=== PATIENT | female | born 1960 | race Caucasian/White ===

== ENCOUNTER 2017-08-08 15:52 | Emergency (ER) | payer OTHER, SELFPAY ==
[2017-08-08 15:53] VITALS: BP 119/86; PULSE 95; RESP 16; TEMP 37; O2SAT 99; BMI 38.5
[2017-08-08 15:59] VITALS: O2SAT 99
--- NOTE | 2017-08-08 16:02 | CT_ITS ---
STUDY: CT BRAIN WITHOUT CONTRAST REASON FOR EXAM: Female, 57 years old. Fall. RADIATION DOSAGE (If Supplied By Facility): CTDIvol = ( 44.99 ) mGy, DLP = ( 829.85 ) mGycm TECHNIQUE: Transaxial CT imaging of the brain was performed without administration of intravenous contrast material. Individualized dose optimization techniques were used for this CT. COMPARISON: 11/29/2016. FINDINGS: Normal soft tissue structures. Normal calvarium. Normal size ventricles and extra-axial spaces for the patient's age. Normal white matter tracts of the cerebral hemispheres. Normal basal ganglia and thalami. Normal brainstem. Normal cerebellum. There is no intracranial hemorrhage. There are no findings of an acute ischemic infarction. Normal visualized paranasal sinuses. CT/Brain/Head without Contrast IMPRESSION: Normal unenhanced CT scan of the brain. Electronically Signed: Pepe De La Cruz MD at 17:07 EDT , Service support ,
--- NOTE | 2017-08-08 16:02 | CT_ITS ---
STUDY: CT CERVICAL SPINE WITHOUT CONTRAST REASON FOR EXAM: Female, 57 years old. Trauma. Previous surgery. RADIATION DOSAGE (If Supplied By Facility): CTDIvol = ( 28.86 ) mGy, DLP = ( 661.33 ) mGycm TECHNIQUE: High resolution transaxial imaging was performed without contrast material. Sagittal and coronal images were reconstructed. Individualized dose optimization techniques were used for this CT. COMPARISON: None FINDINGS: Normal craniovertebral junction. Normal anterior atlantoaxial articulation. Normal odontoid process. Normal cervical lordosis. Postsurgical effusion seen between C4, C5 and C6, with a satisfactory appearance of anterior buttress plate, and complete bony fusion of the discs. Facet joints are intact at all levels. Prominent loss of disc height at C3-C4 and C6-C7. Multilevel posterior osteophytes and disc bulges. At C3-C4 there is a large left-sided osteophyte with marked narrowing of the left neural foramina. There is moderate narrowing of the right neural foramina. There is compromise of the spinal canal, especially to the left. At C4-C5 there is a large posterior osteophyte with prominent compromise of the spinal canal. There is moderate narrowing of both neural foramina. At C5-C6, prominent posterior osteophytes are seen, again with compromise of the spinal canal and bilateral neural foraminal narrowing. Normal visualized soft tissue structures. CT/Spine Cervical without Contras IMPRESSION: No acute fracture or dislocation. Postsurgical and extensive degenerative changes including multilevel neural foraminal and spinal canal narrowing. Electronically Signed: Pepe De La Cruz MD at 17:13 EDT , Service support ,
--- NOTE | 2017-08-08 16:02 | RAD_ITS ---
STUDY: X-RAY - RIGHT RADIUS AND ULNA REASON FOR EXAM: Female, 57 years old. Fall. TECHNIQUE: 2 view(s) of the forearm. COMPARISON: None. FINDINGS: There is no demonstrated soft tissue swelling. Normal visualized radius. Normal visualized ulna. There is no demonstrated acute fracture. RAD/Forearm 2 Views IMPRESSION: Normal x-ray examination of the radius and ulna. Electronically Signed: Pepe De La Cruz MD at 17:14 EDT , Service support ,
[2017-08-08 16:44] LABS: Anion Gap 8 (5-15); BUN 18 mg/dL (7-18); BUN/Creat Ratio 15.5 RATIO (10-20); Calcium,Total 8.5 mg/dL (8.5-10.1); Chloride 104 mmol/L (98-107); Creatinine, Serum 1.16 mg/dL (0.55-1.02); EST Glomerular Filtration Rate 51 mL/min (>60); Est Glom Filt Rate - Afr Amer 62 mL/min (>60); Estimated Creatinine Clearance 42.83 ml/min; Glucose 88 mg/dL (74-106); Potassium 4.1 mmol/L (3.5-5.1); Sodium Level 139 mmol/L (136-145)
[2017-08-08] MEDS: Ondansetron 4 MG/2 ML Vial IV (16:44)
[2017-08-08] MEDS: Morphine 4 MG/ML Syringe IV (16:44)
[2017-08-08] MEDS: 0.9% Normal Saline 1,000 ML 150 ML IV (16:47)
--- NOTE | 2017-08-08 16:50 | RAD_ITS ---
STUDY: X-RAY CHEST REASON FOR EXAM: Female, 57 years old. Trauma. TECHNIQUE: Single AP portable view of the chest. COMPARISON: 11/29/2016. FINDINGS: The lungs are clear and expanded. There is no demonstrated pleural abnormality. Normal size heart. Normal mediastinum and facundo. Normal visualized pulmonary arteries. Normal visualized aortic arch and descending thoracic aorta. Normal visualized thoracic spine. Previous cervical spine surgery. Normal visualized ribs, clavicles, and shoulders. There is no demonstrated abnormality of the visualized soft tissue structures of the upper abdomen. RAD/Chest 1 View (Portable) IMPRESSION: Normal x-ray examination of the chest. Electronically Signed: Pepe De La Cruz MD at 17:16 EDT , Service support ,
[2017-08-08 16:57] LABS: Absolute Lymphocyte Count 1.66 X10^3/ul (0.83-4.51); Absolute Neutrophil Count 3.5 X10^3/uL (2.0-7.7); Basophil# 0.03 X10^3/uL; Basophil% 0.5 % (0-1); Eosinophil# 0.09 X10^3/uL; Eosinophils% 1.6 % (0-5); Hematocrit 37.4 % (37-47); Hemoglobin 12.2 g/dl (12.0-15.0); Lymphocyte # 1.66 X10^3/ul (4.0); Lymphocyte % 30.1 % (19-41); Mean Corp Hgb Conc 32.6 g/gl (32-36); Mean Corpuscular Hgb 27.1 pg (27.0-32.0); Mean Corpuscular Volume 83.1 fL (81-99); Mean Platelet Vol. 8.6 fl (6.2-12.0); Monocyte# 0.26 X10^3/uL; Monocyte% 4.7 % (0-10); Neutrophil # 3.46 X10^3/uL (2.7-7.7); Neutrophil % 62.9 % (47-70); Platelet Count 230 K/mm3 (150-450); RBC Distribution Width CV 13.3 % (11.6-14.6); RBC Distribution Width SD 39.8 fl (35.1-43.9); White Blood Count 5.5 K/mm3 (4.4-11.0)
[2017-08-08 17:04] LABS: POSITIVE COUNT NO; POSITIVE DIFFERENTIAL NO; POSITIVE MORPHOLOGY NO
--- NOTE | 2017-08-08 17:23 | ED.VISSUMM ---
- ER Visit Summary Date of Service: 08/08/17 Chief Complaint: Fall History of Present Illness: The patient is a 57 F who fell approximately 3 feet off a ladder. She did hit her head but had a loss of consciousness. She is planning a right forearm pain. She is right-hand dominant. Past history significant for hypertension, high cholesterol, asthma, hypothyroidism, and depression. She is not on anticoagulants. Physical Examination: Vital signs are unremarkable. Patient sitting upright in bed with a c-collar in place. Head neck examination was a 4 cm abrasion to the right parietal scalp with underlying hematoma. There is no C-spine tenderness. Heart is regular rate and rhythm. Lung sounds are clear. Abdomen soft nontender. Extremity examination reveals tenderness in the right mid forearm and elbow. She has no tenderness at the right shoulder. She is able to wiggle her fingers and has good distal pulses with normal sensation. Test Results: CT scan of the head is unremarkable. CT the C-spine shows no acute fracture or dislocation. Right forearm x-rays are unremarkable. Chest x-ray is normal. CBC and chemistry studies are unremarkable. Emergency Department Course and Treatment: Patient was given morphine and Zofran IV. On repeat evaluation she is improved and ambulate in the hallway. She will be discharged with prescription for analgesics. Treatment Plan: [] Disposition: Discharge Impression: 1. Fall 2. Closed head injury 3. Right forearm contusion This note was generated with inFreeDA dictation software. It may contain incorrect words, spelling, and punctuation that were not noted in review of the chart prior to signing ED Disposition - Plan for ED Patient: Chief Complaint: Head Injury Referrals: Columba Mike MD [Primary Care Provider] -
--- NOTE | 2017-08-08 17:27 | ED.DCSUM_ITS ---
- ER Visit Summary Date of Service: 08/08/17 Chief Complaint: Fall History of Present Illness: The patient is a 57 F who fell approximately 3 feet off a ladder. She did hit her head but had a loss of consciousness. She is planning a right forearm pain. She is right-hand dominant. Past history significant for hypertension, high cholesterol, asthma, hypothyroidism, and depression. She is not on anticoagulants. Physical Examination: Vital signs are unremarkable. Patient sitting upright in bed with a c-collar in place. Head neck examination was a 4 cm abrasion to the right parietal scalp with underlying hematoma. There is no C-spine tenderness. Heart is regular rate and rhythm. Lung sounds are clear. Abdomen soft nontender. Extremity examination reveals tenderness in the right mid forearm and elbow. She has no tenderness at the right shoulder. She is able to wiggle her fingers and has good distal pulses with normal sensation. Test Results: CT scan of the head is unremarkable. CT the C-spine shows no acute fracture or dislocation. Right forearm x-rays are unremarkable. Chest x- ray is normal. CBC and chemistry studies are unremarkable. Emergency Department Course and Treatment: Patient was given morphine and Zofran IV. On repeat evaluation she is improved and ambulate in the hallway. She will be discharged with prescription for analgesics. Treatment Plan: [] Disposition: Discharge Impression: 1. Fall 2. Closed head injury 3. Right forearm contusion This note was generated with [employer] dictation software. It may contain incorrect words, spelling, and punctuation that were not noted in review of the chart prior to signing ED Disposition - Plan for ED Patient: Chief Complaint: Head Injury Referrals: Columba Mike MD [Primary Care Provider] -
--- NOTE | 2017-08-08 17:29 | ED.DEP ---
ED Disposition - Plan for ED Patient: Disposition: Home or Assisted Living Chief Complaint: Head Injury Instructions: ED Head Injury Closed, ED Contusion Upper Ext, ED Mechanical Fall Prescriptions: Oxycodone HCl/Acetaminophen [Percocet 5/325] 1 tablet PO Q6H PRN PRN 3 Days #12 tablet PRN Reason: Pain Referrals: Columba Mike MD [Primary Care Provider] - 1 Week
[2017-08-08 17:47] VITALS: BP 110/80; PULSE 80; RESP 16; O2SAT 97
== END 2017-08-08 17:55 | disposition home or self-care (01) ==
PROVIDERS: Emergency Provider Emergency Medicine; Family Provider Internal Medicine; PCP Internal Medicine
DX: S50.11XA Contusion of right forearm, initial encounter (principal); S09.90XA Unspecified injury of head, initial encounter; W11.XXXA Fall on and from ladder, initial encounter; Y93.89 Activity, other specified; Y92.89 Other specified places as the place of occurrence of the external cause; Y99.8 Other external cause status
CPT/HCPCS: 70450; 71045; 72125; 73090; 80048; 85025; 96361; 96374; 96375; 99285; J7030; A4216; J2405

== ENCOUNTER 2019-01-28 08:01 | Emergency (ER) | payer MEDICAID, SELFPAY ==
[2019-01-28 08:03] VITALS: BP 155/84; PULSE 90; RESP 17; TEMP 36.8; O2SAT 98; BMI 40.8
--- NOTE | 2019-01-28 08:22 | RAD_ITS ---
STUDY: X-RAY - PELVIS AND LEFT HIP REASON FOR EXAM: Female, 58 years old. PAIN TO LEFT HIP AND LOWER BACK, WORSENING OVER LAST WEEK -- HX OF FALL FEW WEEKS AGO TECHNIQUE: 3 views of the pelvis and hip. COMPARISON: None. FINDINGS: There is a normal bowel gas pattern. Normal visualized soft tissue structures. There is degenerative and postoperative changes in the lower spine Normal bilateral iliac wings, sacroiliac joints and visualized sacrum. Normal bilateral superior and inferior pubic rami. Normal pubic symphysis. Normal bilateral ischial tuberosities. There are osteoarthritic changes of the femoral head with marginal osteophyte formation. There is osteoarthritic spur formation of the acetabular rim. There is moderate articular joint space narrowing of the hip. There is no acute fracture. RAD/HIP, UNI W/ Pelvis 2-3 Views IMPRESSION: Degenerative change. No acute fracture. Electronically Signed: Uri Campos MD at 8:37 EST , Service support ,
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
--- NOTE | 2019-01-28 08:48 | DCINST.ED_ITS ---
ED Disposition - Plan for ED Patient: Instructions: Hip Strain Prescriptions: Hydrocodone Bitart/Apap 5-325 [[place] 5MG-325MG] 1 tab PO Q4H PRN PRN 2 Days #10 tab PRN Reason: Pain Prescription Printed Referrals: Columba Mike MD [Primary Care Provider] - 3-5 Days Carlyle Broussard MD [STAFF PHYSICIAN] - 3-5 Days
== END 2019-01-28 08:55 | disposition home or self-care (01) ==
LOC: ED 08:21
PROVIDERS: Emergency Provider Emergency Medicine; Family Provider Internal Medicine; PCP Internal Medicine
DX: S73.192A Other sprain of left hip, initial encounter (principal); I10 Essential (primary) hypertension; Z79.899 Other long term (current) drug therapy; W01.0XXA Fall on same level from slipping, tripping and stumbling without subsequent striking against object, initial encounter; Y93.89 Activity, other specified; Y92.007 Garden or yard of unspecified non-institutional (private) residence as the place of occurrence of the external cause; Y99.8 Other external cause status
CPT/HCPCS: 73502; 99282

== ENCOUNTER 2019-03-29 09:30 | Outpatient (RCR) | payer MEDICAID, SELFPAY ==
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
--- NOTE | 2019-05-15 13:37 | HP.PT.NRP ---
DOUG WAGNER was seen in my office for initial evaluation on 03/19/19. The following Plan of Care was established for this patient: Initial Frequency: 2x /Week Initial Duration: 4-6 Weeks Patient/Client Instruction: Educate patient on: Condition, Plan of Care For the Purpose of:: To decrease pain, To improve muscle performance and motor function, To increase tolerance to activity/condition/position, To improve ability of physical actions for home/community/work/leisure, To improve gait and locomotor functions Therapeutic Exercise to Include: Strength training, Flexibilty training, Gait and locomotor training, Neuromotor development, In an aquatic setting, Passive ROM, Active ROM For the Purpose of:: To decrease pain, To improve muscle performance and motor function, To increase tolerance to activity/condition/position, To improve gait and locomotor functions This patient was last seen in our office 03/29/19. Pertinent comments regarding their Physical therapy will appear below: Pt seen 4 visits of POC and cancelled her last two without rescheduling. At this point, it has been nearly two months adn I will discontinue due to nonattendance. At this point I will be discontinuing this patient from physical therapy. I would be happy to see this patient again in the future if found appropriate by the physician. Thank you! Geovani Menendez, DPT, OCS, CSCS
== END 2019-03-29 19:00 | disposition home or self-care (01) ==
LOC: PT 09:30
PROVIDERS: PCP Internal Medicine; Referring Provider Specialist; Visit Provider Specialist
DX: M16.12 Unilateral primary osteoarthritis, left hip (principal)
CPT/HCPCS: 97113; 97161

== ENCOUNTER → 2019-04-17 | Outpatient (CLI) | payer MEDICAID, SELFPAY ==
--- NOTE | 2019-04-16 22:42 | HP.PCM_ITS ---
History and Physical History and Physical [facility] Patient Name: Robyn Melo : 1960 From: JULIOCESAR EDWARDS PA-C DATE OF SURGERY: 05/02/2019 SCHEDULED PROCEDURE: left total hip arthroplasty HISTORY OF PRESENT ILLNESS: Preoperative history and physical exam was performed on April 16, 2019. This is a 58-year-old female who has been having ongoing pain in her left hip since early January 2019 after a fall. Patient fell landing on the left side. She was worked up with an MRI which did reveal nondisplaced transphyseal femoral neck fracture. She was treated with protected weightbearing. Patient also has significant osteoarthritis with the left hip. Patient has pain that is constant, dull, aching, sharp, stabbing, sore. She has increased pain with stairs, driving, sitting, and walking. Patient has difficult time with activities of daily living including showering/bathing, getting dressed, housework, shopping. She has fallen in the past. Patient feels unsafe walking outside on uneven ground or putting full weight on her left lower extremity. She has tried previous physical therapy that was placed on hold due to her continued pain. She has tried rest, ice, heat, elevation. She has been on Tylenol and Aleve for pain control. She denies previous surgery on the left hip. Currently denies any chest pain, shortness of breath, fevers chills, recent infections. After failing conservative measures and discussing treatment options with Dr. Carlyle Broussard, the patient would like to proceed with a left total hip arthroplasty. Patient does have a medical history pertinent for thyroid disease, gastroesophageal reflux disease, hypertension. Patient also has previous history of multiple back surgeries with cervical and lumbar fusion. She states she had a staph infection from a previous back surgery 2 years ago which required IV antibiotics. There is been no recent fevers, chills or recent infections. We are obtaining surgical clearance from the primary care physician. REVIEW OF SYSTEMS: ROS: Const: Denies anorexia, anxiety, change in appetite, fever and weight change,hard of hearing, and vision problems. Eyes: Denies symptoms other than stated above. ENMT: Denies ear symptoms. Denies nasal symptoms. Denies mouth or throat symptoms. CV: Denies cardiovascular symptoms. Resp: Reports asthma, but denies cough, pneumonia, sleep apnea, shortness of breath, tuberculosis and wheezing. GI: Denies constipation, diarrhea, heartburn, nausea, bloody stools and vomiting, and difficulty swallowing. : Denies female genital problems. Denies incontinence. Musculo: Denies leg swelling, trouble walking and weakness and limp. Skin: Reports tattoo, but denies Raynaud's and history of shingles. Breast: Denies breast problems. Neuro: Denies neurologic symptoms. Psych: Denies psychiatric symptoms. Endocrine: Denies endocrine symptoms. Jimmie/Lymph: Denies hematologic symptoms. . (Nodes Sx) Allergy/Immuno: Denies allergic/immunologic symptoms. Reviewed, no changes. PAST MEDICAL HISTORY: Advance Care Plan: No Advance Directives Effective Date: 02/01/2019 PMH: Medical Problems: Asthma, Thyroid Disease, GERD, High Blood Pressure, Hypercholesterolemia Accidents: None Surgical Hx: Cervical Fusion - 2003 Herniated disc L4/L5 Fusion Neck Fusion Back Fusion - 6 Anesthesia Complications: None Assistive Devices: Glasses Reviewed and updated. SOCIAL HISTORY: SH: Marital: Single.Occupation: Unemployed.Work Status: Not Working Currently.Hand Dominance: Right-handed. Personal Habits: Cigarette Use: Former.Smokeless Tobacco: Never Used Smokeless Tobacco.E-Cigarette Use: Never used.Alcohol: Has consumed alcohol in the past.Drug Use: Denies Use.Enjoy Exercising: Daily. Reviewed and updated. VITALS: Ht: 61 Wt: 214lb Wt k.070 BMI: 40.4 BP: 126/82 Pulse: 100 Resp: 18 T: 98.4 T: 36.9C ALLERGIES: Lidocaine PCN Latex, Natural Rubber Atorvastatin MEDICATIONS: Levothyroxine Sodium 75 mcg daily, Bupropion HCL 75 mg 2 tabs by mouth daily, Lisinopril 10 mg daily, Prilosec 20 mg 1 po qdAY, Omeprazole 20 mg 1 by mouth every day, Fluoxetine HCL (PMDD) 20 mg 1 tab by mouth daily, Simvastatin 20 mg 1 by mouth every day, Lamotrigine ER 100 mg 1 tab by mouth daily PRE-OP EXAM: General appearance:NORMAL Other: Eyes: Conjunctivae and lids: NORMAL Pupils: ERR Ears, Nose, Mouth, and Throat: NORMAL Other: Inspection of lips, teeth and gums: NORMAL Other: Neck: Examination of neck: no masses noted. Respiratory: Assessment of respiratory effort: NORMAL Other: Auscultation of lungs: clear to auscultation no wheezes, rhonchi or rales. Cardiovascular: Auscultation of heart: regular rate and rhythm, no murmurs, gallops or rubs. Exam of carotid arteries: NORMAL Other: Gastrointestinal: Exam of abdomen: soft, nontender, nondistended bowel sounds present. PHYSICAL EXAMINATION: Patient walks with an antalgic gait. There is a 20 left hip flexion contracture. She has tenderness to palpation along the lateral left hip. She has obligatory external rotation with flexion, pain is significantly increased with flexion, abduction, internal rotation. Flexion to 70, internal rotation neutral, external rotation 25. 3/5 strength. IMAGING STUDIES: On February 15, 2019 which did show significant osteoarthritis of the left hip as well as healing nondisplaced transphyseal femoral neck fracture. Previous x-rays of the left hip reveal joint space narrowing with subchondral sclerosis, osteophyte formation consistent with moderate to severe osteoarthritis. IMPRESSION: 1. Severe right hip osteoarthritis with previous Transphyseal femoral neck fracture 2. Thyroid disease 3. Hypertension 4. Gastroesophageal reflux disease 5. Hypercholesterolemia 6. Asthma 7. Previous history of cervical and lumbar fusion: Previous staph infection 2 years ago PLAN: Dr. Carlyle Broussard did discuss and review with the patient all treatment options including surgical versus nonsurgical options. Patient does wish to proceed with the above-stated procedure. Potential risks, benefits, and complications of the procedure were discussed in detail including but not limited to , infection, nerve and blood vessel damage, persistent pain, numbness, tingling, paresthesias, blood clot, pulmonary embolism, and requirement for possible further surgery. The patient expressed full understanding and has no further questions for the doctor. Patient does agree to proceed with the above-stated procedure and has signed the surgery consent form. This dictation was created using voice recognition software. Phonetic and/or grammatical errors may exist. ___ I have re-examined the patient. There are no clinical changes since date of exam. ___ See progress notes for changes. ___ Dictated on admission Date: Time: Signature:
[2019-04-17 08:08] VITALS: BP 137/80; PULSE 83; RESP 16; TEMP 36.5; O2SAT 97; BMI 40.2
--- NOTE | 2019-04-17 08:23 | SDCEKG_ITS ---
Test Reason : Blood Pressure : / mmHG Vent. Rate : 078 BPM Atrial Rate : 078 BPM P-R Int : 188 ms QRS Dur : 078 ms QT Int : 366 ms P-R-T Axes : 046 -41 018 degrees QTc Int : 417 ms Normal sinus rhythm Left axis deviation Inferior infarct (cited on or before 19-OCT-2005) Abnormal ECG Confirmed by NITHYA RODRIGUEZ ([id number]), design editor BUCK ELLIOTT ([id number]) on 04/19/2019 7:21:37 AM Referred By: Carlyle Broussard Confirmed By:NITHYA RODRIGUEZ
[2019-04-17 08:52] LABS: Absolute Lymphocyte Count 1.27 X10^3/uL (0.83-4.51); Basophil# 0.04 X10^3/uL; Basophil% 0.8 % (0-1); Eosinophil# 0.12 X10^3/uL; Eosinophils% 2.5 % (0-5); Hematocrit 38.5 % (37-47); Hemoglobin 12.2 g/dL (12.0-15.0); Lymphocyte # 1.27 X10^3/ul (4.0); Mean Corp Hgb Conc 31.7 g/dL (32-36); Mean Corpuscular Hgb 25.9 pg (27.0-32.0); Mean Corpuscular Volume 81.7 fL (81-99); Mean Platelet Vol. 8.4 fl (6.2-12.0); Monocyte% 6.4 % (0-10); NRBC Flagged by Analyzer 0 % (0-5); Neutrophil # 2.97 X10^3/uL (2.7-7.7); Neutrophil % 63.1 % (47-70); Platelet Count 246 K/mm3 (150-450); RBC Distribution Width CV 13.2 % (11.6-14.6); RBC Distribution Width SD 39.4 fl (35.1-43.9); Red Blood Count 4.71 M/mm3 (4.2-5.4); White Blood Count 4.7 K/mm3 (4.4-11.0)
[2019-04-17 09:09] LABS: Anion Gap 5 (5-15); BUN 20 mg/dL (7-18); BUN/Creat Ratio 21.9 RATIO (10-20); Calcium,Total 9.5 mg/dL (8.5-10.1); Chloride 106 mmol/L (98-107); Creatinine, Serum 0.92 mg/dL (0.55-1.02); EST Glomerular Filtration Rate 67 mL/min (>60); Est Glom Filt Rate - Afr Amer 81 mL/min (>60); Estimated Creatinine Clearance 50.91 ml/min; Glucose 103 mg/dL (74-106); Potassium 4.3 mmol/L (3.5-5.1); Sodium Level 138 mmol/L (136-145); Thyroid Stim Hormone (TSH) 3.47 uIU/mL (0.358-3.74)
== END | disposition home or self-care (01) ==
LOC: PAT 05-28 10:36
PROVIDERS: PCP Internal Medicine; Referring Provider Specialist; Visit Provider Specialist
DX: M16.11 Unilateral primary osteoarthritis, right hip (principal); E07.9 Disorder of thyroid, unspecified; I10 Essential (primary) hypertension; K21.9 Gastro-esophageal reflux disease without esophagitis; E78.00 Pure hypercholesterolemia, unspecified; J45.909 Unspecified asthma, uncomplicated
CPT/HCPCS: 80048; 84443; 85025; 87077; 87081; 93005

== ENCOUNTER 2019-05-30 08:59 | Day surgery (SDC) | payer MEDICAID, SELFPAY ==
[2019-04-17 08:08] VITALS: BMI 40.2
--- NOTE | 2019-05-28 19:42 | HP.PCM_ITS ---
History and Physical Date of Admission: 05/30/19 [facility] History and Physical Patient Name: Robyn Melo : 1960 From: TREVA HYATT NP DATE OF SURGERY: 05/30/2019 SCHEDULED PROCEDURE: Left total hip arthroplasty HISTORY OF PRESENT ILLNESS: Preoperative history and physical exam was performed on May 28, 2019. This is a 58-year-old female has been having ongoing left hip pain since January 2019 after a fall. The patient landed on her left side. The patient sustained a nondisplaced transfer his he a femoral neck fracture. She was treated with protective weightbearing. The patient also has significant osteoarthritis in the left hip. She describes the pain as constant, dull, aching, sharp, stabbing and sore. The pain is increased with stairs, driving, sitting and walking. She has difficulty with activities of daily living including showering/bathing, dressing, housework and shopping. The patient has a history of falls. The patient feels insecure walking on uneven ground or bearing full weight on her left lower extremity. Previous treatments include rest, ice, heat and elevation . She has taken Tylenol and Aleve for pain control. The patient also attempted physical therapy but due to increased pain was put on hold. She denies previous surgery on the left hip. The patient denies chest pain, fevers, chills, shortness of breath, difficulty breathing or recent infections. After failing conservative treatment measures and discussing treatment options with Dr. Carlyle Broussard the patient would like to proceed with a left total hip arthroplasty. The patient does have a medical history pertinent for thyroid disease, gastroesophageal reflux and hypertension. She has a history of multiple back surgeries with cervical and lumbar fusion. The patient had a staph infection from a previous back surgery 2 years ago which required IV antibiotics. We are obtaining surgical clearance from her primary care physician. REVIEW OF SYSTEMS: ROS: Const: Denies anorexia, anxiety, change in appetite, fever and weight change,hard of hearing, and vision problems. Eyes: Denies symptoms other than stated above. ENMT: Denies ear symptoms. Denies nasal symptoms. Denies mouth or throat symptoms. CV: Denies cardiovascular symptoms. Resp: Reports asthma, but denies cough, pneumonia, sleep apnea, shortness of breath, tuberculosis and wheezing. GI: Denies constipation, diarrhea, heartburn, nausea, bloody stools and vomiting, and difficulty swallowing. : Denies female genital problems. Denies incontinence. Musculo: Denies leg swelling, trouble walking and weakness and limp. Skin: Reports tattoo, but denies Raynaud's and history of shingles. Breast: Denies breast problems. Neuro: Denies neurologic symptoms. Psych: Denies psychiatric symptoms. Endocrine: Denies endocrine symptoms. Jimmie/Lymph: Denies hematologic symptoms. . (Nodes Sx) Allergy/Immuno: Denies allergic/immunologic symptoms. Reviewed, no changes - 05/28/2019 at 7:25 pm by Treva Hyatt PAST MEDICAL HISTORY: Advance Care Plan: No Advance Directives Effective Date: 02/01/2019 PMH: Medical Problems: Asthma, Thyroid Disease, GERD, High Blood Pressure, Hypercholesterolemia, Depression Accidents: None Surgical Hx: Cervical Fusion - 2003 Herniated disc L4/L5 Fusion Neck Fusion Back Fusion - 6 Anesthesia Complications: None Assistive Devices: Glasses Reviewed and updated - 05/28/2019 at 7:25 pm by Treva Hyatt SOCIAL HISTORY: SH: Marital: Single.Occupation: Unemployed.Work Status: Not Working Currently.Hand Dominance: Right-handed. Personal Habits: Cigarette Use: Former.Smokeless Tobacco: Never Used Smokeless Tobacco.E-Cigarette Use: Never used.Alcohol: Has consumed alcohol in the past.Drug Use: Denies Use.Enjoy Exercising: Daily. Reviewed, no changes - 05/28/2019 at 7:25 pm by Treva Hyatt VITALS: Ht: 61 Wt: 214lb Wt k.070 BMI: 40.4 BP: 112/68 Pulse: 103 Resp: 18 T: 98.2 T: 36.8C ALLERGIES: Lidocaine PCN Latex, Natural Rubber Atorvastatin MEDICATIONS: Oxycodone HCL 5 mg 1-2 by mouth every 6 hours, Meloxicam 7.5 mg 1 by mouth twice a day, Promethazine HCL 12.5 mg 1-2 tablets by mouth every 6 hours, Levothyroxine Sodium 75 mcg daily, Bupropion HCL 75 mg 2 tabs by mouth daily, Lisinopril 10 mg daily, Prilosec 20 mg 1 po qdAY, Fluoxetine HCL (PMDD) 20 mg 1 tab by mouth daily, Simvastatin 20 mg 1 by mouth every day, Lamotrigine ER 100 mg 1 tab by mouth daily PRE-OP EXAM: General appearance:NORMAL Other: Eyes: Conjunctivae and lids: NORMAL Pupils: ERR Ears, Nose, Mouth, and Throat: NORMAL Other: Inspection of lips, teeth and gums: NORMAL Other: Neck: Examination of neck: no masses noted. Respiratory: Assessment of respiratory effort: NORMAL Other: Auscultation of lungs: clear to auscultation no wheezes, rhonchi or rales. Cardiovascular: Auscultation of heart: regular rate and rhythm, no murmurs, gallops or rubs. Gastrointestinal: Exam of abdomen: soft, nontender, nondistended bowel sounds present. Neurological: see below Psychiatric: Orientation to time, place and person: NORMAL Other: Mood and affect: NORMAL Other: PHYSICAL EXAMINATION: The patient walks with an antalgic gait. There is a 20 left hip flexion contracture. Tenderness with palpation along the lateral left hip. She has obligatory external rotation with flexion. The pain is significantly increased with flexion, abduction and internal rotation. Range of motion: Flexion to 70. Internal rotation to neutral. External rotation 25. Strength 3/5. IMAGING STUDIES: An MRI was obtained on February 15, 2019 revealing a healing nondisplaced incomplete lateral transphyseal fracture of the left neck of femur. X-rays obtained on March 16, 2019 of the left hip reveal joint space narrowing with subchondral sclerosis, osteophyte formation consistent with moderate to severe osteoarthritis. IMPRESSION: 1. Severe right hip osteoarthritis with previous transphyseal femoral neck fracture 2. Thyroid disease 3. Hypertension 4. Gastroesophageal reflux disease 5. Hypercholesterolemia 6. Asthma 7. Previous history of cervical and lumbar fusion with staph infection approximately 2 years ago. 8. MRSA positive PLAN: Dr. Carlyle Broussard did discuss and review the patient all treatment options including surgical versus nonsurgical. The patient does wish to proceed with a left total hip arthroplasty. Potential risk, benefits and complications of the procedure were discussed in detail including but not limited to , in fection, nerve and blood vessel damage, persistent pain, numbness, tingling, paresthesias, blood clot, pulmonary embolism and requirement for possible further surgery. The patient expressed full understanding and has no further questions for the doctor. The patient does agree to proceed with the above- stated procedure and has signed the surgery consent form. ___ I have re-examined the patient. There are no clinical changes since date of exam. ___ See progress notes for changes. ___ Dictated on admission Date: Time: Signature:
[2019-05-30] VITALS (9 sets, daily range): BP systolic 112–130; BP diastolic 57–81; PULSE 85–94; RESP 16–18; TEMP 36.2–36.9; O2SAT 94–100; BMI 38.7
--- NOTE | 2019-05-30 | HIP_PTH ---
PATIENT: DOUG WAGNER LOC: [facility] U#:[id number] AGE/SX: 58/F ROOM: RE05/30/[address]: Dr. Carlyle Broussard MD : 1960 BED: DIS: 05/30/2019 SPEC #: [id number] RECD: 05/30/19 14:43 STATUS: WYATT REQ #: [id number] SCOTTY: 05/30/19 00:[address]: Carlyle Broussard DEPT: SURGICAL PATHOLOGY RECD BY: Noé Amaro ENTERED: 05/31/19 10:28 SP TYPE: TOTAL HIP OTHR DR: Dr. Columba Mike MD Tissues: Hip, NOS Procedures: Decalcification bone/plaque Surgery Specimen Level IV HEADER OPERATION: RANDAS, minimally invasive direct anterior total hip PRE-OP DIAGNOSIS: Severe right hip osteoarthritis with previous transphyseal femoral neck fracture TISSUE SUBMITTED: Left hip bone and soft tissue MICROSCOPIC DIAGNOSIS Left hip bone and soft tissue, total hip replacement/resection: Femoral head with degenerative osteoarthritic changes. Fragments of fibroadipose tissue, fibroconnective tissue and reactive synovial tissue. SANTANA:carole 06/06/19 MICROSCOPIC DESCRIPTION Slides are reviewed. GROSS DESCRIPTION Received is one container designated left hip bone and soft tissue. The specimen consists of a femoral measuring 4 x 4.5 x 4 cm. The articular surface shows focal area of erosion and osteophyte formation. Also present in the specimen container is a detached piece of bone, most consistent with portion of femoral neck measuring 4.5 x 4 x 2 cm. A small piece of soft tissue is noted attached to the top of the femoral head measuring 2.5 x 1.5 x 1 cm. Spanish Interpreter/Translator sections are submitted in three cassettes as follows: 1 - soft tissue, 2 - femoral head, 3 - femoral neck. Cassettes 2 & 3 are submitted after decalcification. / SANTANA:carole 05/31/19 TC:5 CPT: 39880, 02324
[2019-05-30] MEDS: Acetaminophen 500 MG Tablet 1000 MG PO (09:59)
[2019-05-30] MEDS: Celecoxib 200 MG Capsule 400 MG PO (10:00)
[2019-05-30] MEDS: Gabapentin 600 MG Tablet PO (10:00)
[2019-05-30] MEDS: Lactated Ringers 1,000 ML 999 ML IV (10:14)
[2019-05-30 10:20] LABS: Bedside Glucose 96 mg/dL (70-110)
--- NOTE | 2019-05-30 11:10 | RAD_ITS ---
STUDY: X-RAY - PELVIS AND LEFT HIP REASON FOR EXAM: Female, 58 years old. TOTAL ANTERIOR HIP TECHNIQUE: 2 intraoperative views of the pelvis and hip. COMPARISON: None. FINDINGS: The patient is status post left total hip replacement. There is good alignment. RAD/Hip 1 view with Pelvis IMPRESSION: Status post left total hip replacement. There is good alignment. Electronically Signed: Angelo Rockwell, at 15:10 EDT , Service support ,
[2019-05-30] MEDS: Cefazolin 2 GM in 0.9% Normal Saline 100 ML IV (12:06)
--- NOTE | 2019-05-30 12:23 | RAD_ITS ---
STUDY: X-RAY - PELVIS AND LEFT HIP REASON FOR EXAM: Female, 58 years old. Post op left hip surgery TECHNIQUE: 2 views of the pelvis and hip. COMPARISON: Comparison is made with prior radiograph dated May 30, 2019 done earlier in the day. FINDINGS: The patient is status post left total hip replacement. There is good alignment. Postoperative soft tissue changes. Marked degree of joint space narrowing and osteoarthritis of the right hip joint. RAD/Hip Min 2 Views (Portable) IMPRESSION: Status post left total hip replacement. There is good alignment. Postoperative soft tissue changes. Marked degree of osteoarthritis and joint space narrowing of the right hip joint. Electronically Signed: Angelo Rockwell, at 15:18 EDT , Service support ,
[2019-05-30] MEDS: dexAMETHasone 10 MG/ML Vial IV (12:38)
[2019-05-30] MEDS: Lactated Ringers 1,000 ML 75 ML IV (13:00)
--- NOTE | 2019-05-30 13:55 | OP.PCM_ITS ---
Report of Operation Date of Procedure: 05/30/19 Pre-Operative Diagnosis: Left hip primary osteoarthritis. Left hip transc ervical femoral neck fracture sequelae Post-Operative Diagnosis: Left hip primary osteoarthritis. Left hip transcervical femoral neck fracture sequelae Surgery/Procedure Performed:: Left minimally invasive direct anterior total hip replacement Description of Surgical Findings:: Stable hip with equal leg lengths small battery plate assembler: Natanael Whalen Type of Anesthesia:: General Anesthesiologist: Grant Frank Special Medications: 2 g Ancef, 1 g TXA at incision, 1 g TXA closure, 10 mg Decadron, joint cocktail (5 mg Duramorph, 30 mL of 0.5% Ropivicaine, 1000 units of epinephrine, 30 mg of Toradol). Vancomycin secondary to history of Specimen's removed: Femoral head was sent for pathology. Estimated Blood Loss (mL): 200 Fluids Replaced: 1500 mL crystalloid Description of Procedure: Components used: 1. Accolade 2 Cassie femoral stem size 3 127? 2. Interior trident 2 acetabular shell size 48 mm 3. Interior X3 polyethylene d 4. Cassie Biolox delta 32mm, -4mm femoral head Brief history operative indications: 58 yo f who failed conservative measures for their hip osteoarthritis. X-rays were consistent with osteoarthritis including joint space narrowing, osteophyte formation and subchondral cysts. Total hip replacement was discussed with the patient with risks and benefits including but not limited to blood loss, DVTs, PEs, neurovascular damage, dislocation, general risks of anesthesia including loss of life. Patient demonstrated an understanding medical clearance is obtained the patient was consented for surgery. Procedure: On the date of procedure the patient's L hip was marked in the preoperative area. Patient was then taken back to the operating room where anesthesia assumed control of the C-spine and airway and administered anesthetic. Patient was transferred to the operating table and placed in the supine position. The hips were placed at the break of the bed and a sacral bump was placed. The L lower extremity was then prepped out in a sterile fashion using chlorhexidine while the surgeon scrubbed. The PA was vital in the positioning of the patient. Upon reentering the room the L lower extremity was draped in the standard orthopedic fashion and the incision was marked. A timeout was called and everyone agreed upon the side, the site, the procedure be performed, antibody given, and patient's identity. At this time incision was made through skin, subcutaneous tissue, and fat down to fascia. The fascia was then incised and the TFL was retracted laterally. A retractor was placed on the lateral border of the femoral neck. Attention was directed to the inferior portion of the approach and all crossing vessels were identified and appropriately coagulated. A retractor was then placed on the medial portion of the femoral neck. The anterior capsule was then cleared of all soft tissue and then H shaped capsulotomy was made. The retractors were then placed inside the capsule. The femoral neck was identified and a cleanup cut was made. At this time a power corkscrew was used to remove the femoral head. Attention was then turned toward the acetabulum where the soft tissues were appropriately retracted and the acetabulum was sequentially reamed to 48 mm. A 48 mm cup was then selected and impacted into place. Acetabular liner was impacted into place and locking mechanism was verified. The position of the acetabular cup was then verified under live fluoroscopy. Attention was then turned to the femur. Soft tissue releases on the medial and lateral femoral neck were appropriately done, the leg was externally rotated and lateralized. A Power retractor was placed medially and proximally to the greater trochanter this allowed appropriate visualization and exposure of the femoral canal. Rongeour was then used to remove excess lateral bone. A canal finder and entry broach were used to open the proximal canal. Once we verified we were down the femoral canal we subsequently broached up to a size 3 femur. The appropriate neck was placed in the previously selected head was trialed with a [] mm neck. Traction was pulled and the hip was reduced with internal rotation. Once it was appropriately reduced and stability was checked. There was minimal shuck, equal leg lengths and appropriate stability with hyperextension and external rotation as well as with 90? flexion and internal rotation. Fluoroscopy was then also used to verify the position of the components and leg lengths using the contralateral side for comparison. The trial components were then dislocated the proximal femur was again exposed and the components were removed from the wound. The final components were verified and opened. The wound was copiously irrigated out with normal saline. The acetabulum was checked for any residual debris. The final components were placed and impacted. Traction and internal rotation were again used to reduce the hip. After adequate reduction the hip remained stable with appropriate leg lengths. The final components were once again checked with live fluoroscopy and were found to be satisfactory. The wound was then copiously irrigated with normal saline once more, and hemostasis was obtained. Closure was then done using #1 Vicryl runner to close the fascia. A 2-0 vicryl interuppted sutures were used to close the subcutaneous skin. A 3-0 Monocryl and Steri-Strips were used for final skin closure. A Silverlon dressing was placed. Patient was awakened by anesthesia and transferred to the [facility]. Patient was then transferred to the PACU for recovery. Postoperative plan: Patient will get an additional dose of Ancef postop antibiotics prior to discharge. Patient will get in-house physical therapy and will be weight-bear as tolerated. Patient will follow up in office in 2 weeks for a wound check and x-rays. During the course of the procedure the physician medical lab assistant played a vital role. His intimate knowledge of my steps in the procedure aided in safe and expedient completion of the procedure. The PA played a vital rolls in positioning particularly in obtaining the appropriate positioning of the sacral bump. The PA was also vital in the retraction of soft tissues during the exposure and especially the femoral work as this is a vital part of the procedure to prevent complications and fractures. The PA was also vital and protecting soft tissues during times of bony cuts and reaming. He also played a vital role in closure with my direct supervision. The PA was also important during reduction and dislocation of the joint and trials intraoperatively. Grafts/Implants Used: Interior - Complications No intraoperative complications - Admit VTE Documentation VTE Present on Admission: No VTE Mechan Device Prophylaxis: SCD's, Thigh High MILTON Hose VTE Pharm Prophylaxis ordered?: Yes Essential Procedure Criteria Procedure Essential: Yes Criteria Note: On 04/24/2019 the [place] Department of Health ([facility]) Public Order signed by [facility] Director Bethany Peterson M.D., regarding the Management of Non- Essential Surgeries and Procedures for the purpose of preserving Personal Protective Equipment (PPE) and critical hospital capacity and resources within [place] went into effect as of 04/25/2019 at 5:00PM. According to the [facility] Public Order: This action will remain in full force and effect until the State of [place] declared by the Governor no longer exists or the Director of the [facility] rescinds or modifies this Order.. This [facility] order stated all non-essential or elective surgeries and procedures that utilize PPE should be delayed unless there is undue risk to the current or future health of a patient. After reviewing the aforementioned [facility] Public Order and the patients clinical case, I have determined that the scheduled procedure meets the criteria to go forward. Risk to Patient if Procedure Delayed: Risk of rapidly worsening to severe symptoms - progression of hip fracture
[2019-05-30] MEDS: Cefazolin 1 GM/50 ML BAG IV (15:55)
== END 2019-05-30 17:49 | disposition home or self-care (01) ==
LOC: SDC 09:03 → AC 09:03
PROVIDERS: PCP Internal Medicine; Visit Provider Specialist
PROC: (CPT 27284; principal; 2019-05-30 10:45)
DX: M16.12 Unilateral primary osteoarthritis, left hip (principal); S72.032 Displaced midcervical fracture of left femur; E07.9 Disorder of thyroid, unspecified; I10 Essential (primary) hypertension; K21.9 Gastro-esophageal reflux disease without esophagitis; E78.00 Pure hypercholesterolemia, unspecified; J45.909 Unspecified asthma, uncomplicated; F41.9 Anxiety disorder, unspecified; F32.9 Major depressive disorder, single episode, unspecified; Z87.891 Personal history of nicotine dependence; Z79.899 Other long term (current) drug therapy; Z79.1 Long term (current) use of non-steroidal anti-inflammatories (NSAID); W18.30XS Fall on same level, unspecified, sequela
CPT/HCPCS: 27130; 73501; 73502; 76000; 82962; 88305; 88311; 97162; C1776; J7040; J7120; J2405

== ENCOUNTER 2019-09-19 06:42 | Day surgery (SDC) | payer MEDICAID, SELFPAY ==
[2019-05-30 09:54] VITALS: BMI 38.7
[2019-09-04 11:26] LABS: Absolute Lymphocyte Count 1.45 X10^3/uL (0.83-4.51); Absolute Neutrophil Count 3.2 X10^3/uL (2.0-7.7); Basophil# 0.03 X10^3/uL; Basophil% 0.6 % (0-1); Eosinophil# 0.07 X10^3/uL; Eosinophils% 1.4 % (0-5); Hematocrit 41.1 % (37-47); Hemoglobin 12.7 g/dL (12.0-15.0); Lymphocyte # 1.45 X10^3/ul (4.0); Lymphocyte % 28.6 % (19-41); Mean Corp Hgb Conc 30.9 g/dL (32-36); Mean Corpuscular Hgb 25.3 pg (27.0-32.0); Mean Corpuscular Volume 81.9 fL (81-99); Mean Platelet Vol. 8.2 fl (6.2-12.0); Monocyte# 0.36 X10^3/uL; Monocyte% 7.1 % (0-10); NRBC Flagged by Analyzer 0 % (0-5); Neutrophil # 3.15 X10^3/uL (2.7-7.7); Neutrophil % 62.1 % (47-70); Platelet Count 253 K/mm3 (150-450); RBC Distribution Width CV 13.8 % (11.6-14.6); RBC Distribution Width SD 40.6 fl (35.1-43.9); Red Blood Count 5.02 M/mm3 (4.2-5.4); White Blood Count 5.1 K/mm3 (4.4-11.0)
[2019-09-04 11:58] LABS: Anion Gap 5 (5-15); BUN 18 mg/dL (7-18); Calcium,Total 9.3 mg/dL (8.5-10.1); Chloride 105 mmol/L (98-107); EST Glomerular Filtration Rate 68 mL/min (>60); Est Glom Filt Rate - Afr Amer 83 mL/min (>60); Glucose 91 mg/dL (74-106); Potassium 4.3 mmol/L (3.5-5.1); Sodium Level 138 mmol/L (136-145)
--- NOTE | 2019-09-04 13:36 | PCM.HP.BLA ---
History and Physical History and Physical Patient Name: Robyn Melo : 1960 From: DOMINICK HYATT NP DATE OF SURGERY: 09/19/2019 SCHEDULED PROCEDURE: Direct anterior right total hip arthroplasty HISTORY OF PRESENT ILLNESS: Preoperative history and physical exam was performed on August 27, 2019. This is a 53-year-old female who has been having ongoing right hip pain for over 7 months. She describes the pain as constant, aching, sharp, stabbing and sore. The pain is 5 on a scale of 10 at best and 8 on a scale of 10 with activity. The pain is made worse with stairs, driving, sitting for extended periods of time and walking. The pain does wake her at night. The patient reports inability to walk on uneven ground and go out of the house due to the concern for falls or tripping. The patient states she has difficulty dressing including putting on her socks and shoes, doing housework and shopping. Previous treatments include rest and elevation with mild relief. The patient recently underwent a left total hip arthroplasty on May 30, 2019. While dissipating in formal physical therapy for the left hip the patient also worked on her right hip. Ibuprofen provides no relief knee on postoperative pain medications from her left total hip arthroplasty provided temporary relief. The patient does have a medical history pertinent for hypertension, hypothyroidism, depression, hyperlipidemia asthma. Surgical clearance has been obtained from Dr. Mike prior to her surgery in May 2019. The patient currently denies chest pain, fevers, chills, shortness of breath, difficulty breathing or recent infections. After failing conservative measures and discussing treatment options with Dr. Carlyle Broussard the patient does wish to proceed with a right total hip arthroplasty. REVIEW OF SYSTEMS: ROS: Const: Denies anorexia, anxiety, change in appetite, fever and weight change,hard of hearing, and vision problems. Eyes: Denies symptoms other than stated above. ENMT: Denies ear symptoms. Denies nasal symptoms. Denies mouth or throat symptoms. CV: Denies cardiovascular symptoms. Resp: Reports asthma, but denies cough, pneumonia, sleep apnea, shortness of breath, tuberculosis and wheezing. GI: Denies constipation, diarrhea, heartburn, nausea, bloody stools and vomiting, and difficulty swallowing. : Denies female genital problems. Denies incontinence. Musculo: Denies leg swelling, trouble walking and weakness and limp. Skin: Reports tattoo, but denies Raynaud's and history of shingles. Breast: Denies breast problems. Neuro: Denies neurologic symptoms. Psych: Denies psychiatric symptoms. Endocrine: Denies endocrine symptoms. Jimmie/Lymph: Denies hematologic symptoms. Allergy/Immuno: Denies allergic/immunologic symptoms. Reviewed, no changes. PAST MEDICAL HISTORY: Advance Care Plan: No Advance Directives Effective Date: 02/01/2019 PMH: Medical Problems: Asthma, Thyroid Disease, GERD, High Blood Pressure, Hypercholesterolemia, Depression Accidents: None Surgical Hx: Cervical Fusion - 2003 Herniated disc L4/L5 Fusion Back Fusion - 6 Hip Replacement LT - (05/30/2019) SAW @ [facility] Anesthesia Complications: None Assistive Devices: Glasses Reviewed and updated. SOCIAL HISTORY: SH: Marital: Single.Occupation: Unemployed.Work Status: Not Working Currently.Hand Dominance: Right-handed. Personal Habits: Cigarette Use: Former.Smokeless Tobacco: Never Used Smokeless Tobacco.E-Cigarette Use: Never used.Alcohol: Has consumed alcohol in the past.Drug Use: Denies Use.Enjoy Exercising: Daily. Reviewed, no changes. VITALS: Ht: 61 Wt: 198lb Wt k.813 BMI: 37.4 BP: 118/78 Pulse: 68 Resp: 16 T: 97.3 T: 36.3C ALLERGIES: Lidocaine PCN Latex, Natural Rubber Atorvastatin MEDICATIONS: Oxycodone HCL 5 mg 1-2 tab by mouth every 4 hours, Meloxicam 7.5 mg 1 by mouth twice a day, Promethazine HCL 12.5 mg 1-2 tablets by mouth every 6 hours, Transderm Scop (1.5 MG) 1 MG/3Days 1 patch behind ear every 3 days, Levothyroxine Sodium 75 mcg daily, Bupropion HCL 75 mg 2 tabs by mouth daily, Lisinopril 5 mg daily, Prilosec 20 mg 1 po qdAY, Fluoxetine HCL (PMDD) 20 mg 1 tab by mouth daily, Simvastatin 20 mg 1 by mouth every day, Lamotrigine ER 100 mg 1 tab by mouth daily, Aspirin 81 81 mg 1po qd, Tylenol Extra Strength 500 mg 2 by mouth every 8 hours PRE-OP EXAM: General appearance:NORMAL Other: Eyes: Conjunctivae and lids: NORMAL Pupils: ERR Ears, Nose, Mouth, and Throat: NORMAL Other: Inspection of lips, teeth and gums: NORMAL Other: Respiratory: Assessment of respiratory effort: NORMAL Other: Auscultation of lungs: clear to auscultation no wheezes, rhonchi or rales. Cardiovascular: Auscultation of heart: regular rate and rhythm, no murmurs, gallops or rubs. Gastrointestinal: Exam of abdomen: soft, nontender, nondistended bowel sounds present. Neurological: see below Psychiatric: Orientation to time, place and person: NORMAL Other: Mood and affect: NORMAL Other: PHYSICAL EXAMINATION: The patient ambulates with an antalgic gait. Right hip is cool to touch without erythema or signs of infection. 10 flexion contracture on the right. Obligatory external rotation with flexion. Flexion to 80. Internal neutral. External rotation to 25. Pain is reproduced with passive flexion, adduction and internal rotation. Hip flexion strength 5/5. Sensation intact to saphenous, sural, deep and superficial peroneal and tibial nerve distributions. IMAGING STUDIES: 3 views of right hip including weightbearing AP pelvis and AP hip and crossfire lateral obtained on August 09, 2019 reviewed reveals joint space narrowing, subchondral sclerosis and osteophyte formation consistent with severe stage IV osteoarthritis. IMPRESSION: 1. Stage IV osteoarthritis, right hip 2. Hypertension 3. Hypothyroidism 4. Depression 5. Hyperlipidemia 6. Asthma 7. History of alcohol abuse 8. GERD PLAN: Dr. Carlyle Broussard did discuss and review with the patient all treatment options including surgical versus nonsurgical. The patient does wish to proceed with the above-stated procedure. Potential risk, benefits and complications of the procedure were discussed in detail including but not limited to , infection, nerve and blood vessel damage, persistent pain, numbness, tingling, paresthesia, blood clot, pulmonary embolism and requirement for possible further surgery. The patient expressed full understanding and has no further questions for the doctor. The patient does agree to proceed with the above-stated procedure and has signed the surgery consent form. At today's preoperative visit the patient was given prescriptions for the following medications: Meloxicam, oxycodone, promethazine and scopolamine patch. She was also instructed to picking table worker [id number] extra strength Tylenol 500 mg, aspirin 81 mg and Senokot. She will bring a walker with her to the hospital the day of her surgery. Discussed with the patient the risks associated with the COVID-19 virus including the risk of exposure while at the hospital. The patient was reassured local hospitals have low infection rates and taken all necessary precautions to limit patient exposure to COVID-19. Limiting the patient's time in the hospital may decrease their exposure to COVID-19. The patient was notified that we will need to comply with any screening or testing the hospital wishes to perform and that surgery may be delayed for any positive test results. This dictation was created using voice recognition software. Phonetic and/or grammatical errors may exist. ___ I have re-examined the patient. There are no clinical changes since date of exam. ___ See progress notes for changes. ___ Dictated on admission Date: Time: Signature:
[2019-09-04 23:08] LABS: Magnesium 2.2 mg/dL (1.6-2.6); Thyroid Stim Hormone (TSH) 3.39 uIU/mL (0.358-3.74)
[2019-09-19] VITALS (10 sets, daily range): BP systolic 109–127; BP diastolic 64–109; PULSE 74–101; RESP 12–16; TEMP 36–36.7; O2SAT 95–100; BMI 37.9
[2019-09-19 07:20] LABS: Bedside Glucose 105 mg/dL (70-110)
[2019-09-19] MEDS: Acetaminophen 500 MG Tablet 1000 MG PO ×2 (07:28→14:50)
[2019-09-19] MEDS: Gabapentin 600 MG Tablet PO (07:29)
[2019-09-19] MEDS: Celecoxib 200 MG Capsule 400 MG PO (07:29)
[2019-09-19] MEDS: Scopolamine 1mg/72hr Patch 1 PATCH TD (07:30)
[2019-09-19] MEDS: Lactated Ringers 1,000 ML 999 ML IV ×2 (07:46→11:00)
[2019-09-19] MEDS: Cefazolin 2 GM in 0.9% Normal Saline 100 ML IV (08:53)
--- NOTE | 2019-09-19 09:00 | RAD_ITS ---
STUDY: X-RAY - PELVIS AND RIGHT HIP REASON FOR EXAM: Female, 59 years old. RT ANTERIOR TOTAL HIP, 6.7 SEC FLUORO, 1.16 MGY TECHNIQUE: 1 views of the pelvis and hip. COMPARISON: None. Intraoperative imaging provided for right hip replacement. RAD/Hip 1 view with Pelvis IMPRESSION: Intraoperative imaging provided for right hip replacement. Electronically Signed: Angelo Rockwell, at 15:36 EDT , Service support ,
--- NOTE | 2019-09-19 10:24 | PCM.OPRPT ---
Report of Operation Date of Procedure: 09/19/19 Pre-Operative Diagnosis: R HIP OA Post-Operative Diagnosis: R HIP OA Surgery/Procedure Performed:: R DA MANUEL MINIMALLY INVASIVE Description of Surgical Findings:: Stable hip with equal leg lengths promotions producer: Peña Dean Type of Anesthesia:: General Anesthesiologist: Grant Frank Special Medications: 2 g Ancef, 1 g TXA at incision, 1 g TXA closure, 10 mg Decadron, joint cocktail (5 mg Duramorph, 30 mL of 0.5% Ropivicaine, 1000 units of epinephrine, 30 mg of Toradol) Specimen's removed: Bony cuts Estimated Blood Loss (mL): 350 Fluids Replaced: 1800 ML CRYSTALLOID Description of Procedure: Components used: 1. Accolade 2 Cassie femoral stem size 3 127? 2. [place] trident 2 acetabular shell size 48 mm 3. [place] X3 polyethylene D 4. [place] Biolox delta 32mm, 0mm femoral head Brief history operative indications: 59 yo F who failed conservative measures for their hip osteoarthritis. X-rays were consistent with osteoarthritis including joint space narrowing, osteophyte formation and subchondral cysts. Total hip replacement was discussed with the patient with risks and benefits including but not limited to blood loss, DVTs, PEs, neurovascular damage, dislocation, general risks of anesthesia including loss of life. Patient demonstrated an understanding medical clearance is obtained the patient was consented for surgery. Procedure: On the date of procedure the patient's R hip was marked in the preoperative area. Patient was then taken back to the operating room where anesthesia assumed control of the C-spine and airway and administered anesthetic. Patient was transferred to the operating table and placed in the supine position. The hips were placed at the break of the bed and a sacral bump was placed. The R lower extremity was then prepped out in a sterile fashion using chlorhexidine while the surgeon scrubbed. The PA was vital in the positioning of the patient. Upon reentering the room the R lower extremity was draped in the standard orthopedic fashion and the incision was marked. A timeout was called and everyone agreed upon the side, the site, the procedure be performed, antibody given, and patient's identity. At this time incision was made through skin, subcutaneous tissue, and fat down to fascia. The fascia was then incised and the TFL was retracted laterally. A retractor was placed on the lateral border of the femoral neck. Attention was directed to the inferior portion of the approach and all crossing vessels were identified and appropriately coagulated. A retractor was then placed on the medial portion of the femoral neck. The anterior capsule was then cleared of all soft tissue and then H shaped capsulotomy was made. The retractors were then placed inside the capsule. The femoral neck was identified and a cleanup cut was made. At this time a power corkscrew was used to remove the femoral head. Attention was then turned toward the acetabulum where the soft tissues were appropriately retracted and the acetabulum was sequentially reamed to 48 mm. A 48 mm cup was then selected and impacted into place. Acetabular liner was impacted into place and locking mechanism was verified. The position of the acetabular cup was then verified under live fluoroscopy. Attention was then turned to the femur. Soft tissue releases on the medial and lateral femoral neck were appropriately done, the leg was externally rotated and lateralized. A Power retractor was placed medially and proximally to the greater trochanter this allowed appropriate visualization and exposure of the femoral canal. Rongeour was then used to remove excess lateral bone. A canal finder and entry broach were used to open the proximal canal. Once we verified we were down the femoral canal we subsequently broached up to a size 3 femur. The appropriate neck was placed in the previously selected head was trialed with a 0 mm neck. Traction was pulled and the hip was reduced with internal rotation. Once it was appropriately reduced and stability was checked. There was minimal shuck, equal leg lengths and appropriate stability with hyperextension and external rotation as well as with 90? flexion and internal rotation. Fluoroscopy was then also used to verify the position of the components and leg lengths using the contralateral side for comparison. The trial components were then dislocated the proximal femur was again exposed and the components were removed from the wound. The final components were verified and opened. The wound was copiously irrigated out with normal saline. The acetabulum was checked for any residual debris. The final components were placed and impacted. Traction and internal rotation were again used to reduce the hip. After adequate reduction the hip remained stable with appropriate leg lengths. The final components were once again checked with live fluoroscopy and were found to be satisfactory. The wound was then copiously irrigated with normal saline once more, and hemostasis was obtained. Closure was then done using #1 Vicryl runner to close the fascia. A 2-0 vicryl interuppted sutures were used to close the subcutaneous skin. A 3-0 Monocryl and Steri-Strips were used for final skin closure. A Silverlon dressing was placed. Patient was awakened by anesthesia and transferred to the [facility]. Patient was then transferred to the PACU for recovery. Postoperative plan: Patient will get 24 hours postop antibiotics. Patient will get in-house physical therapy and will be weight-bear as tolerated. Patient will follow up in office in 2 weeks for a wound check and x-rays. - Complications NONE - Admit VTE Documentation VTE Present on Admission: No VTE Mechan Device Prophylaxis: SCD's, Thigh High MILTON Hose VTE Pharm Prophylaxis ordered?: Yes
--- NOTE | 2019-09-19 11:20 | RAD_ITS ---
STUDY: X-RAY - PELVIS AND RIGHT HIP REASON FOR EXAM: Female, 59 years old. POST OP MANUEL TECHNIQUE: 2 views of the pelvis and hip. COMPARISON: Comparison is made with prior study dated 05/30/2019. FINDINGS: The patient is status post right total hip replacement. There is good alignment. Postoperative soft tissue changes. RAD/Hip Min 2 Views (Portable) IMPRESSION: Status post right hip replacement. There is good alignment. Postoperative soft tissue changes. Electronically Signed: Angelo Rockwell, at 12:07 EDT , Service support ,
[2019-09-19] MEDS: Lactated Ringers 1,000 ML 125 ML IV ×2 (11:36→11:39)
[2019-09-19] MEDS: Ketorolac 30 MG/ML Syringe IV (11:37)
[2019-09-19] MEDS: Cefazolin 1 GM/50 ML BAG IV (14:50)
== END 2019-09-19 15:27 | disposition home or self-care (01) ==
LOC: SDC 06:42 → AC 06:42
PROVIDERS: Anesthesiology; Registered Nurse; PCP Internal Medicine; Referring Provider Specialist; Visit Provider Specialist
PROC: (CPT 27284; principal; 2019-09-19 08:35)
DX: M16.11 Unilateral primary osteoarthritis, right hip (principal); J45.909 Unspecified asthma, uncomplicated; E78.5 Hyperlipidemia, unspecified; F32.9 Major depressive disorder, single episode, unspecified; F41.9 Anxiety disorder, unspecified; E03.9 Hypothyroidism, unspecified; I10 Essential (primary) hypertension; K21.9 Gastro-esophageal reflux disease without esophagitis; Z11.59 Encounter for screening for other viral diseases; Z96.642 Presence of left artificial hip joint; Z87.891 Personal history of nicotine dependence; Z79.899 Other long term (current) drug therapy; Z79.82 Long term (current) use of aspirin; Z79.1 Long term (current) use of non-steroidal anti-inflammatories (NSAID)
CPT/HCPCS: 27130; 36415; 73501; 73502; 76000; 80048; 82962; 83735; 84443; 85025; 87077; 87081; 87635; 94799; 97162; 97166; C1776; J7050; J7120; J2405; U0003

== ENCOUNTER 2020-06-05 14:30 | Emergency (ER) | payer MEDICAID, SELFPAY ==
[2019-09-19 07:16] VITALS: BMI 37.9
[2020-06-05 14:31] VITALS: BP 144/87; PULSE 70; RESP 16; TEMP 36.1; O2SAT 99; BMI 38.1
[2020-06-05 14:41] LABS: Bedside Glucose 96 mg/dL (70-110)
--- NOTE | 2020-06-05 15:55 | CT_ITS ---
STUDY: CT BRAIN WITHOUT CONTRAST REASON FOR EXAM: Female, 59 years old. Confusion RADIATION DOSAGE (If Supplied By Facility): CTDIvol = ( 44.99 ) mGy, DLP = ( 829.82 ) mGycm TECHNIQUE: Transaxial CT imaging of the brain was performed without administration of intravenous contrast material. Individualized dose optimization techniques were used for this CT. COMPARISON: 08/08/2017 FINDINGS: Normal soft tissue structures. Normal calvarium. Normal size ventricles and extra-axial spaces for the patient''s age. Normal white matter tracts of the cerebral hemispheres. Normal basal ganglia and thalami. Normal brainstem. Normal cerebellum. There is no intracranial hemorrhage. There are no findings of an acute ischemic infarction. Normal visualized paranasal sinuses. CT/Brain/Head without Contrast IMPRESSION: Normal unenhanced CT scan of the brain. Electronically Signed: Aden Figueredo DO at 16:47 EDT Tel [phone], Service support ,
--- NOTE | 2020-06-05 15:55 | EKG12_ITS ---
Test Reason : CONFUSION Blood Pressure : / mmHG Vent. Rate : 073 BPM Atrial Rate : 073 BPM P-R Int : 198 ms QRS Dur : 074 ms QT Int : 400 ms P-R-T Axes : 037 -29 007 degrees QTc Int : 440 ms Normal sinus rhythm Inferior infarct , age undetermined, cannot be excluded Abnormal ECG Confirmed by YIN SONG, MORENA ([id number]), video tape editor ASHLEY SANTA ([id number]) on 06/09/2020 12:27:25 PM Referred By: CINDA Confirmed By:MORENA ESQUEDA MD
[2020-06-05 16:18] LABS: Basophil# 0.04 X10^3/uL; Basophil% 0.4 % (0-1); Eosinophil# 0.04 X10^3/uL; Eosinophils% 0.4 % (0-5); Hematocrit 39.6 % (37-47); Hemoglobin 12.2 g/dL (12.0-15.0); Lymphocyte % 13.3 % (19-41); Mean Corp Hgb Conc 30.8 g/dL (32-36); Mean Corpuscular Hgb 24.7 pg (27.0-32.0); Mean Corpuscular Volume 80.2 fL (81-99); Mean Platelet Vol. 8.4 fl (6.2-12.0); Monocyte# 0.39 X10^3/uL; NRBC Flagged by Analyzer 0 % (0-5); Neutrophil # 7.98 X10^3/uL (2.7-7.7); Neutrophil % 81.6 % (47-70); Platelet Count 253 K/mm3 (150-450); RBC Distribution Width SD 40.6 fl (35.1-43.9); Red Blood Count 4.94 M/mm3 (4.2-5.4); White Blood Count 9.8 K/mm3 (4.4-11.0)
--- NOTE | 2020-06-05 16:20 | RAD_ITS ---
STUDY: X-RAY CHEST REASON FOR EXAM: Female, 59 years old. sob TECHNIQUE: Frontal view COMPARISON: 08/09/2019 FINDINGS: The lungs are not fully expanded. There is no demonstrated pleural abnormality. Normal size heart. Normal mediastinum and facundo. Normal visualized pulmonary arteries. Normal visualized aortic arch and descending thoracic aorta. Normal visualized thoracic spine. Normal visualized ribs, clavicles, and shoulders. There is no demonstrated abnormality of the visualized soft tissue structures of the upper abdomen. RAD/Chest 1 View (Portable) IMPRESSION: Normal x-ray examination of the chest. Electronically Signed: Aden Figueredo DO at 16:35 EDT Tel [phone], Service support ,
--- NOTE | 2020-06-05 16:21 | EDS_ITS ---
HPI History of Present Illness Chief Complaint: Confusion Informant: patient Onset/Context/Timing Onset: Today Context: Sudden Onset Timing: Continuous Current Severity: Mild Maximum Severity: Moderate Narrative Narrative: The patient presents with confusion. She states she was in her normal state of health today. She works as a certified substance abuse counselor. She states she became to get diaphoretic but had no chest pain. She states that she was feeling more dizzy, and then had urinary incontinence. She states she does have history of this, but she never lost consciousness. There is no seizure activity. She had no chest pain. She denies any fever. She states that she was feeling back to herself, just generally weak. She denies headache. She denies any focal symptoms. She states she is been compliant with her medications. There is been no recent changes in her medications. Prior similar symptoms: No Recent Illness/Hospitalization: No PFSH PFSH Medical History Depression Hypertension Stroke/cerebrovascular accident Home Medications bupropion HCl 150 mg PO DAILY 04/24/15 [History Last Taken 09/19/19 05:20] lisinopril 10 mg PO DAILY 04/24/15 [History Last Taken 09/19/19 05:20] albuterol sulfate 1 puff INHALATION Q6H PRN PRN 01/28/19 [History Last Taken 05/30/19 08:30] fluoxetine 20 mg PO QHS 04/17/19 [History Last Taken 09/19/19 05:20] lamotrigine 100 mg PO DAILY 04/17/19 [History Last Taken 09/19/19 05:20] levothyroxine 75 mcg PO DAILY 04/17/19 [History Last Taken 09/19/19 05:20] omeprazole 20 mg PO DAILY 04/17/19 [History Last Taken 09/19/19 05:20] simvastatin 20 mg PO QHS 04/17/19 [History Last Taken Unknown] Allergy/AdvReac Type Severity Reaction Status Date / Time Latex, Natural Rubber Allergy Hives Verified 09/19/19 07:14 atorvastatin [From Lipitor] AdvReac Itching Verified 09/19/19 07:14 BAND AIDS Allergy Rash Uncoded 09/19/19 07:14 Social History Smoking Status: Former smoker ROS ROS ED Constitutional Constitutional ED: Reports chills and sweats; Denies fever(s) Eyes Eyes: Denies blurry vision or change in vision ENT ENT ED: Denies ear pain or sore throat Cardiovascular Cardiovascular: Denies chest pain or palpitations Respiratory/Chest Respiratory/Chest: Denies cough, dyspnea or dyspnea on exertion Gastrointestinal Gastrointestinal: Denies abdominal pain, nausea or vomiting Genitourinary Genitourinary ED: Denies dysuria or urinary frequency Musculoskeletal Musculoskeletal: Denies arthralgias or myalgias Integumentary Denies rash Neurologic Neurologic: Denies headache(s) or paresthesias Psychiatric Psychiatric: Denies anxiety or depression Endocrine Endocrinology: Denies polydipsia or polyuria Allergic/Immunologic Allergic/Immunologic ED: Denies urticaria EXAM Physical Exam Const Vital Signs: 06/05/20 14:31 06/05/20 17:16 Temperature 97.0 F L Temperature Source Temporal Pulse Rate 70 71 Respiratory Rate 16 16 Blood Pressure 144/87 H 126/82 H Blood Pressure Mean 106 96 Pulse Ox 99 99 Oxygen Delivery Method Room Air Room Air Positive well nourished and well developed General Appearance ED: well developed HEENT Reports normocephalic, head/scalp atraumatic and moist mucous membranes Eyes PERRL and EOMs intact bilaterally Neck no lymphadenopathy and supple General: Negative for tenderness Chest Wall inspection of chest normal Resp normal respiratory effort and clear to auscultation bilaterally Cardio regular rate, regular rhythm and no murmurs GI normal to inspection, nondistended, normoactive bowel sounds Palpation: Negative for tender, guarding or rebound tenderness present Back/Spine no CVA tenderness Cervical Spine: Negative for cervical spine tenderness Thoracic Spine / Upper Back: Negative for thoracic spinal tenderness Extremity normal to inspection General Extremety ED: Negative for tenderness Neuro oriented x3 and CN's II-XII intact bilaterally Neuro Narrative: No focal deficits appreciated. Sensorium / Orientation: alert Psych mental status grossly normal Skin no rashes or lesions noted, no wounds and skin turgor normal MDM MDM MDM Narrative Medical decision making narrative: The patient presents after a near syncopal episode. She was diaphoretic and felt mildly short of breath. She had no chest pain. She states lasted a few minutes and now she feels that she is back to her baseline. She states she has had similar symptoms before when she had urinary tract infection. She denies headache. She has a nonfocal neurologic examination. Patient is resting comfortably. I did do metabolic work-up. Labs are unremarkable. Urine shows no evidence infection. Cardiac enzymes were normal. CT of the brain was reviewed and shows no acute process. Chest x-ray reviewed by myself and radiologist shows no acute process. Patient has been resting comfortably without intervention. She feels improved. She was observed for 3 hours. At this point, I do feel that she is safe for discharge. Lab Data Attestation: I reviewed the patient's lab results. Labs: Laboratory Results - last 24 hr 06/05/20 06/05/20 06/05/20 14:36 16:00 16:00 WBC 9.8 RBC 4.94 Hgb 12.2 Hct 39.6 MCV 80.2 L MCH 24.7 L MCHC 30.8 L RDW Std Deviation 40.6 RDW Coeff of Jer 14.0 Plt Count 253 MPV 8.4 Immature Gran % (Auto) 0.300 Neut % (Auto) 81.6 H Lymph % (Auto) 13.3 L [place] % (Auto) 4.0 Eos % (Auto) 0.4 Baso % (Auto) 0.4 Absolute Neuts (auto) 8.0 H Absolute Lymphs (auto) 1.30 Nucleated RBC % 0 Sodium 136 Potassium 4.1 Chloride 103 Carbon Dioxide 26.0 Anion Gap 7 BUN 16 Creatinine 0.93 Estim Creat Clear Calc 49.76 Est GFR (MDRD) Af Amer 79 Est GFR (MDRD) Non-Af 65 BUN/Creatinine Ratio 17.1 Glucose 97 Calcium 8.8 Total Bilirubin 0.40 AST 16 ALT 26 Alkaline Phosphatase 93 Troponin I < 0.015 Total Protein 7.6 Albumin 3.7 Globulin 3.9 Albumin/Globulin Ratio 0.9 Urine Color Urine Clarity Urine pH Ur Specific [place] Urine Protein Urine Glucose (UA) Urine Ketones Urine Occult Blood Urine Nitrite Urine Bilirubin Urine Urobilinogen Ur Leukocyte Esterase Urine RBC Urine WBC Ur Squamous Epith Cells Urine Bacteria Urine Mucus POC Glucose 96 06/05/20 16:50 WBC RBC Hgb Hct MCV MCH MCHC RDW Std Deviation RDW Coeff of Jer Plt Count MPV Immature Gran % (Auto) Neut % (Auto) Lymph % (Auto) [place] % (Auto) Eos % (Auto) Baso % (Auto) Absolute Neuts (auto) Absolute Lymphs (auto) Nucleated RBC % Sodium Potassium Chloride Carbon Dioxide Anion Gap BUN Creatinine Estim Creat Clear Calc Est GFR (MDRD) Af Amer Est GFR (MDRD) Non-Af BUN/Creatinine Ratio Glucose Calcium Total Bilirubin AST ALT Alkaline Phosphatase Troponin I Total Protein Albumin Globulin Albumin/Globulin Ratio Urine Color Yellow Urine Clarity Clear Urine pH 6.0 Ur Specific [place] 1.010 Urine Protein Negative Urine Glucose (UA) Normal Urine Ketones Negative Urine Occult Blood Negative Urine Nitrite Negative Urine Bilirubin Negative Urine Urobilinogen Normal Ur Leukocyte Esterase Negative Urine RBC 0 SEEN Urine WBC 0 SEEN Ur Squamous Epith Cells 0-5 SEEN Urine Bacteria 0 SEEN Urine Mucus 0 SEEN POC Glucose Radiography Chest X-Ray - ED: 1 View, Read by ED Physician, Read by Radiologist, Heart, Lungs, Mediastinum, Bony Structures and No Acute Disease Diagnostic Testing: Radiology Impression Brain CT 06/05/20 15:55 IMPRESSION: Normal unenhanced CT scan of the brain. Electronically Signed: Aden Figueredo DO at 16:47 EDT Tel [phone], Service support , Chest X-Ray 06/05/20 16:20 IMPRESSION: Normal x-ray examination of the chest. Electronically Signed: Aden Figueredo DO at 16:35 EDT Tel [phone], Service support , EKG Initial EKG: Attestation: I personally reviewed and interpreted this EKG as follows: Interpretation: Sinus Rhythm and No Acute Injury Pattern Prior: Unchanged Discharge Plan Triage Chief Complaint: Confusion ED Provider: Sameer Clark Dx/Rx/DC Orders Instructions: ED Near-Fainting- Vagal Reaction Prescriptions: No Action lisinopril 10 MG tablet 10 mg PO DAILY RF: 0 bupropion HCl 75 MG tablet 150 mg PO DAILY RF: 0 albuterol sulfate 1 INHALER inhaler 1 puff inhalation Q6H PRN PRN (Reason: Sob &/Or Wheezing) RF: 0 levothyroxine 75 MCG tablet 75 mcg PO DAILY RF: 0 simvastatin 20 MG tablet 20 mg PO QHS RF: 0 omeprazole 20 MG capsule 20 mg PO DAILY RF: 0 fluoxetine 20 MG capsule 20 mg PO QHS RF: 0 lamotrigine 100 MG tablet extended release 24hr 100 mg PO DAILY RF: 0 Primary Care Provider: Columba Mike Referrals: Columba Mike MD [Primary Care Provider] -
[2020-06-05] MEDS: 0.9% Normal Saline 1,000 ML 1000 ML IV (16:57)
[2020-06-05 16:59] LABS: Bacteria 0 SEEN /hpf (None Seen); Mucous, Urine 0 SEEN /hpf (<or=2+); Red Blood Cells-Urine 0 SEEN /hpf (0-5); White Blood Cells 0 SEEN /hpf (0-5)
[2020-06-05 17:04] LABS: Color, Urine Yellow (Yellow); Glucose, Dipstick Normal (Normal); Ketone-Dipstick Negative (Negative); Leukocyte Esterase-Dipstick Negative /ul (Negative); Nitrite-Dipstick Negative (Negative); Occult Blood-Urine Negative /ul (Negative); Protein-Dipstick Negative (Negative); Urine Bilirubin Dipstick Negative (Negative); Urine Clarity Clear (Clear); Urine Urobilinogen Normal (Normal)
[2020-06-05 17:10] LABS: ALB/GLOB Ratio 0.9 RATIO (0.9-2.4); AST(SGOT) 16 U/L (15-37); Alanine Aminotransfer ALT/SGPT 26 U/L (13-56); Albumin, Serum 3.7 g/dL (3.2-5.0); Alkaline Phosphatase 93 U/L (45-117); Anion Gap 7 (5-15); BUN 16 mg/dL (7-18); BUN/Creat Ratio 17.1 RATIO (10-20); Calcium,Total 8.8 mg/dL (8.5-10.1); Chloride 103 mmol/L (98-107); Creatinine, Serum 0.93 mg/dL (0.55-1.02); EST Glomerular Filtration Rate 65 mL/min (>60); Est Glom Filt Rate - Afr Amer 79 mL/min (>60); Estimated Creatinine Clearance 49.76 ml/min; Globulin 3.9 g/dL (2.2-4.2); Glucose 97 mg/dL (74-106); Potassium 4.1 mmol/L (3.5-5.1); Protein, Total 7.6 g/dL (6.4-8.2); Sodium Level 136 mmol/L (136-145)
[2020-06-05 17:16] VITALS: BP 126/82; PULSE 71; RESP 16; O2SAT 99
[2020-06-05 17:16] LABS: Squamous Epithelial Cells - UA 0-5 SEEN /hpf (5-10)
== END 2020-06-05 18:03 | disposition home or self-care (01) ==
PROVIDERS: Emergency Provider Emergency Medicine; PCP Internal Medicine
DX: R55 Syncope and collapse (principal); F32.9 Major depressive disorder, single episode, unspecified; I10 Essential (primary) hypertension; Z86.73 Personal history of transient ischemic attack (TIA), and cerebral infarction without residual deficits; Z79.899 Other long term (current) drug therapy; Z87.891 Personal history of nicotine dependence
CPT/HCPCS: 70450; 71045; 80053; 81001; 82962; 84484; 85025; 93005; 96360; 99283; J7030; A4216

== ENCOUNTER 2020-07-27 13:23 | Emergency (ER) | payer MEDICAID, SELFPAY ==
[2020-07-27 13:24] VITALS: BP 149/85; PULSE 103; RESP 16; TEMP 35.9; O2SAT 95; BMI 37.8
--- NOTE | 2020-07-27 13:37 | CT_ITS ---
STUDY: CT BRAIN WITHOUT CONTRAST REASON FOR EXAM: Female, 60 years old. Fall trauma dizziness nausea vomiting RADIATION DOSAGE (If Supplied By Facility): CTDIvol = ( 44.99 ) mGy, DLP = ( 829.85 ) mGycm TECHNIQUE: Transaxial CT imaging of the brain was performed without administration of intravenous contrast material. Individualized dose optimization techniques were used for this CT. COMPARISON: 05 June 2020 FINDINGS: Brain parenchyma is without focal lesions, mass effect, acute intracranial hemorrhage, extra parenchymal fluid collections, hydrocephalus or herniation. The skull is intact. CT/Brain/Head without Contrast IMPRESSION: 1. Normal CT brain. Electronically Signed: Vita Lomax MD at 14:30 EDT Tel , Service support ,
--- NOTE | 2020-07-27 13:38 | ED.VIS.FALL ---
HPI HPI - Fall History of Present Illness Chief Complaint: Head Injury Informant: patient Occured/Mechanism Occurred: Days (2) Mechanism/Context: Yes same level fall and Yes trip Usually ambulates: Without assistance Pain/Injury Location: head Current Severity: Moderate Maximum Severity: Moderate Worsened by: nothing Relieved by: nothing Associated Symptoms Associated Symptoms: Positive for Parasthesias (In fingers bilaterally, chronic since cervical fusion) and Amnesia (To short period of time just after the injury); Negative for Weakness, Loss of function and Inability to ambulate Length of loss of consciousness: Unknown. Was alone without witness. Narrative Narrative: 2 days ago patient was stacking some crates and states that she tripped over one of them and fell, hitting her forehead on the nearby concrete. She was initially dazed and she does not remember part of the events just after that but remembers waking up and realizing that she injured herself. She has had headache and occasional episodes of vomiting, a little off balance with walking, she states that she figured she would feel better after a day or 2 but she does not so she presents for evaluation. She is on no anticoagulants or antiplatelet medications. [facility] Medical History (Updated 07/27/20 @ 15:[address] Uri Cárdenas MD) Depression Hyperlipidemia Hypertension Hypothyroidism Stroke/cerebrovascular accident Home Medications bupropion HCl 150 mg PO DAILY 04/24/15 [History Last Taken 09/19/19 05:20] lisinopril 10 mg PO DAILY 04/24/15 [History Last Taken 09/19/19 05:20] albuterol sulfate 1 puff INHALATION Q6H PRN PRN 01/28/19 [History Last Taken 05/30/19 08:30] fluoxetine 20 mg PO QHS 04/17/19 [History Last Taken 09/19/19 05:20] lamotrigine 100 mg PO DAILY 04/17/19 [History Last Taken 09/19/19 05:20] levothyroxine 75 mcg PO DAILY 04/17/19 [History Last Taken 09/19/19 05:20] omeprazole 20 mg PO DAILY 04/17/19 [History Last Taken 09/19/19 05:20] simvastatin 20 mg PO QHS 04/17/19 [History Last Taken Unknown] ondansetron 8 mg PO Q8H PRN PRN #14 tab 07/27/20 [Rx Last Taken Unknown] Allergy/AdvReac Type Severity Reaction Status Date / Time Latex, Natural Rubber Allergy Hives Verified 07/27/20 13:24 atorvastatin [From Lipitor] AdvReac Itching Verified 07/27/20 13:24 BAND AIDS Allergy Rash Uncoded 07/27/20 13:24 Social History Smoking Status: Former smoker ROS ROS ED Constitutional Constitutional ED: Denies chills or fever(s) Eyes Eyes: Reports blurry vision and change in vision; Denies diplopia ENT ENT ED: Denies rhinorrhea or sore throat Cardiovascular Cardiovascular: Denies chest pain or palpitations Respiratory/Chest Respiratory/Chest: Denies cough or dyspnea Gastrointestinal Gastrointestinal: Reports nausea and vomiting; Denies abdominal pain or diarrhea Genitourinary Genitourinary ED: Denies dysuria or hematuria Musculoskeletal Musculoskeletal: Reports other Details: Chronic unchanged neck and back pain. No new extremity pain. Integumentary Reports Abrasions; Denies abscess or rash Neurologic Neurologic: Reports headache(s) and paresthesias RUE and LUE; Denies weakness Psychiatric Psychiatric: Denies anxiety or suicidal thoughts EXAM Physical Exam Const Vital Signs: 07/27/20 13:24 07/27/20 13:48 Temperature 96.6 F L Temperature Source Temporal Pulse Rate 103 H Respiratory Rate 16 Respiratory Effort Normal Non-Labored Respiratory Depth Normal Respiratory Pattern Normal Blood Pressure 149/85 H Blood Pressure Mean 106 Pulse Ox 95 Oxygen Delivery Method Room Air Positive well nourished and well developed General Appearance ED: well developed and NAD HEENT Reports moist mucous membranes HEENT Narrative: Tender right forehead without evidence of trauma there. No crepitance or depression or hematoma. normocephalic and atraumatic; Negative for Saldaña's sign or raccoon eyes Face and Sinus: sinuses nontender and face symmetric Mouth ED: Yes oral and palatal mucosa normal Mouth: oral and palatal mucosa normal Eyes PERRL and EOMs intact bilaterally Neck full ROM and supple Resp normal respiratory effort and clear to auscultation bilaterally Cardio regular rate, regular rhythm and no murmurs GI non-tender and non-distended Auscultation: normoactive bowel sounds Palpation: soft Back/Spine no CVA tenderness General Back: other FROM Extremity normal to inspection General Extremety ED: Negative for edema, pulses abnormal or tenderness General Extremity: Negative for edema or pulses abnormal Neuro oriented x3, CN's II-XII intact bilaterally and no sensory deficits noted Sensorium / Orientation: awake and alert Motor Exam: strength 5/5 throughout Skin no rashes or lesions noted and no wounds MDM MDM MDM Narrative Medical decision making narrative: As below CT head shows no acute abnormalities. I do not think she needs any other emergent imaging. Her symptoms are consistent with concussion in context of a normal CT. Supportive care advised. She was given Zofran here as well as a prescription for more, [id number] medications as needed for her symptoms/headache, and if her symptoms do not resolve within 1 week total, she should follow-up with her doctor. She is comfortable with that plan we discussed reasons to return. Radiography Diagnostic Testing: Radiology Impression Brain CT 07/27/20 13:37 IMPRESSION: 1. Normal CT brain. Electronically Signed: Vita Lomax MD at 14:30 EDT Tel , Service support , Discharge Plan Triage Chief Complaint: Head Injury ED Provider: Uri Cárdenas Dx/Rx/DC Orders Clinical Impression: Closed head injury with concussion Instructions: ED Concussion Prescriptions: New ondansetron [ondansetron] 4 MG tablet 8 mg PO Q8H PRN PRN (Reason: Nausea) Qty: 14 RF: 0 No Action lisinopril 10 MG tablet 10 mg PO DAILY RF: 0 bupropion HCl 75 MG tablet 150 mg PO DAILY RF: 0 albuterol sulfate 1 INHALER inhaler 1 puff inhalation Q6H PRN PRN (Reason: Sob &/Or Wheezing) RF: 0 levothyroxine 75 MCG tablet 75 mcg PO DAILY RF: 0 simvastatin 20 MG tablet 20 mg PO QHS RF: 0 omeprazole 20 MG capsule 20 mg PO DAILY RF: 0 fluoxetine 20 MG capsule 20 mg PO QHS RF: 0 lamotrigine 100 MG tablet extended release 24hr 100 mg PO DAILY RF: 0 Primary Care Provider: Columba Mike Referrals: Columba Mike MD [Primary Care Provider] - Disposition Disposition: Home, self care
[2020-07-27] MEDS: Ondansetron ODT 4 MG Tablet 8 MG PO (13:46)
[2020-07-27 15:38] VITALS: BP 148/78; PULSE 90
== END 2020-07-27 15:35 | disposition home or self-care (01) ==
PROVIDERS: Emergency Provider Emergency Medicine; PCP Internal Medicine
DX: S09.90XA Unspecified injury of head, initial encounter (principal); I10 Essential (primary) hypertension; E78.5 Hyperlipidemia, unspecified; E03.9 Hypothyroidism, unspecified; F32.9 Major depressive disorder, single episode, unspecified; W01.0XXA Fall on same level from slipping, tripping and stumbling without subsequent striking against object, initial encounter; Z79.899 Other long term (current) drug therapy; Z87.891 Personal history of nicotine dependence
CPT/HCPCS: 70450; 99283

== ENCOUNTER → 2022-02-23 | Outpatient (CLI) | payer MEDICAID, SELFPAY ==
--- NOTE | 2022-02-23 09:35 | RAD_ITS ---
PROCEDURE: Fluoroscopic guided left shoulder Injection DATE: 02/23/2022. INDICATION: Female, 61 years old. Chronic left shoulder pain. PHYSICIAN: Angelo Rockwell M.D. MEDICATIONS: 80 mg of KENALOG and 4 cc of 1% LIDOCAINE. 2% lidocaine administered subcutaneously for local anesthesia. ACCESS SITE: Left shoulder. NEEDLE: 22-gauge spinal needle. FLUOROSCOPY TIME (if supplied): (0:54) minutes/seconds. One image was submitted. FINDINGS: The risks, benefits, and alternatives to the procedure were explained to the patient. The specific risks of bleeding, infection, and neurovascular injury were detailed and accepted. Witnessed informed consent was obtained. A 22-gauge spinal needle was positioned under radiographic fluoroscopic localization. Approximately 2 cc of ISOVUE-300 instilled for localization purposes. Medication was then injected. The patient tolerated the procedure well without any immediate complications. RAD/Inj/Asp Shine Jt Should/Hip/Knee IMPRESSION: 1. Successful fluoroscopic guided left shoulder injection. Electronically Signed: Angelo Rockwell MD at 10:56 EST ,
[2022-02-23] MEDS: Lidocaine 2% (5ml sdv) 5 ML VIAL.MPF INFILT (09:55)
[2022-02-23] MEDS: Triamcinolone Acetonide 40 MG/ML Vial 80 MG INTRAARTIC (09:57)
[2022-02-23] MEDS: Lidocaine 1% (5 ml sdv) 5 ML Vial 4 ML OPERA.SITE (09:57)
== END | disposition home or self-care (01) ==
LOC: RAD 09:28
PROVIDERS: PCP Internal Medicine; Referring Provider Specialist; Visit Provider Specialist
DX: M19.012 Primary osteoarthritis, left shoulder (principal); G89.29 Other chronic pain
CPT/HCPCS: 20610; 77002; Q9965

== ENCOUNTER → 2022-09-24 | Outpatient (CLI) | payer MEDICAID, SELFPAY ==
--- NOTE | 2022-09-24 12:18 | CT_ITS ---
STUDY: CT LEFT SHOULDER REASON FOR EXAM: Female, 62 years old. PAIN IN LEFT SHOULDER RADIATION DOSAGE (If Supplied By Facility): CTDIvol = ( 46.48 ) mGy, DLP = ( 1196.03 ) mGycm TECHNIQUE: The patient was scanned in a multi detector CT scanner. High resolution transaxial imaging was performed without the administration of intravenous contrast material. Sagittal and coronal images were reconstructed. Individualized dose optimization techniques were used for this CT. COMPARISON: None. FINDINGS: There is severe osteoarthritis, with severe articular joint space narrowing, osteoarthritic spurring, articular remodeling, and with articular erosions. Degenerative spur formation along the inferior medial portion of the humeral head. Subchondral geodes are seen in the humeral head as well as the subglenoid region Normal humeral head, neck and tuberosities. Normal coracoid process. Normal visualized lateral clavicle. There is mild osteoarthritis with articular joint space narrowing. There is a Type II morphology (curved), with a neutral orientation. Calcific tendinitis. CT/Extremity Upper without Contra IMPRESSION: Marked degree of osteoarthritis and involving the glenohumeral joint with degenerative spur formation. Electronically Signed: Angelo Rockwell MD at 13:41 EDT ,
== END | disposition home or self-care (01) ==
LOC: CT 12:16
PROVIDERS: PCP Nurse Practitioner; Referring Provider Specialist; Visit Provider Specialist
DX: M25.512 Pain in left shoulder (principal); M19.012 Primary osteoarthritis, left shoulder
CPT/HCPCS: 73200

== ENCOUNTER 2022-10-20 16:51 | Observation (INO) | payer MEDICAID, SELFPAY ==
--- NOTE | 2022-09-24 12:15 | EKG12_ITS ---
Test Reason : PREOP Blood Pressure : / mmHG Vent. Rate : 085 BPM Atrial Rate : 085 BPM P-R Int : 182 ms QRS Dur : 070 ms QT Int : 362 ms P-R-T Axes : 030 236 030 degrees QTc Int : 430 ms Normal sinus rhythm Normal ECG Confirmed by ABEBE HOUSTON ([id number]), associate entertainment editor CHRISTOPH NUNEZ ([id number]) on 09/27/2022 2:08:29 PM Referred By: Carlyle Broussard Confirmed By:ABEBE HOUSTON
[2022-09-24 13:39] LABS: Absolute Lymphocyte Count 1.45 X10^3/uL (0.83-4.51); Absolute Neutrophil Count 3.1 X10^3/uL (2.0-7.7); Basophil# 0.03 X10^3/uL; Basophil% 0.6 % (0-1); Eosinophil# 0.12 X10^3/uL; Eosinophils% 2.4 % (0-5); Hematocrit 39.8 % (37-47); Hemoglobin 12.1 g/dL (12.0-15.0); Lymphocyte # 1.45 X10^3/ul (0.83-4.51); Lymphocyte % 28.6 % (19-41); Mean Corp Hgb Conc 30.4 g/dL (32-36); Mean Corpuscular Hgb 25.3 pg (27.0-32.0); Mean Corpuscular Volume 83.3 fL (81-99); Mean Platelet Vol. 8.6 fl (6.2-12.0); Monocyte# 0.36 X10^3/uL; Monocyte% 7.1 % (0-10); NRBC Flagged by Analyzer 0 % (0-5); Neutrophil % 61.1 % (47-70); Platelet Count 287 K/mm3 (150-450); RBC Distribution Width CV 14.3 % (11.6-14.6); RBC Distribution Width SD 43.2 fl (35.1-43.9); Red Blood Count 4.78 M/mm3 (4.2-5.4); White Blood Count 5.1 K/mm3 (4.4-11.0)
[2022-09-24 14:07] LABS: Albumin, Serum 3.8 g/dL (3.2-5.0); Anion Gap 3 (5-15); BUN 16 mg/dL (7-18); BUN/Creat Ratio 16.4 RATIO (10-20); Calcium,Total 8.8 mg/dL (8.5-10.1); Chloride 109 mmol/L (98-107); Creatinine, Serum 0.98 mg/dL (0.55-1.02); EST Glomerular Filtration Rate 62 mL/min (>60); Est Glom Filt Rate - Afr Amer 75 mL/min (>60); Glucose 91 mg/dL (74-106); Potassium 4.2 mmol/L (3.5-5.1); Sodium Level 139 mmol/L (136-145)
[2022-09-24 14:25] LABS: Magnesium 2.4 mg/dL (1.6-2.6); Thyroid Stim Hormone (TSH) 2.92 uIU/mL (0.358-3.74)
--- NOTE | 2022-10-07 14:31 | PCM.HP.BLA ---
History and Physical History and Physical? Patient Name: Robyn Melo : 1960 From:? JULIOCESAR EDWARDS PA-C? DATE OF PRE-OPERATIVE EXAM: 10/07/2022 DATE OF SURGERY:? 10/20/2022 SCHEDULED PROCEDURE:? Left reverse total shoulder arthroplasty HISTORY OF PRESENT ILLNESS: Preoperative history and physical exam was performed on October 07, 2022.? This is a 62-year-old female who has had ongoing pain in her left shoulder for nearly 1 year.? She has had past history of falls.? She did have a fall in November 2021 injuring the left shoulder.? She reports prior to that she did not have significant symptoms.? She was placed in formal physical therapy at that time.? She also underwent an MRI of the shoulder.? MRI did reveal rotator cuff tear and severe degenerative changes.? She has been seen by Dr. Carlyle Broussard in which she has had a previous corticosteroid injection which gave her minimal relief.? She has continued to have increased pain in the shoulder with activities of daily living.? She has increased pain with reaching above and behind her body.? She has difficulty putting on clothing due to pain.? She feels weaker in the left shoulder.? She states the shoulder is affecting all of her activities of daily living.? After failing conservative measures and discussing all treatment options with Dr. Carlyle Broussard, the patient does wish to proceed with a left reverse total shoulder arthroplasty.? We have obtain surgical clearance for the primary care provider Dr. Mike.? Patient has medical history pertinent for thyroid disease, gastroesophageal reflux disease, hypertension, depression, hypercholesterolemia, and asthma.? She denies past history of DVT or pulmonary embolism.? She does report a remote brain hemorrhage in 2000.? No current symptoms from that.? She denies any chest pain, shortness of breath, fevers chills or recent infections.? REVIEW OF SYSTEMS: Review Of Systems: Constitutional: Denies anorexia, anxiety, change in appetite, fever and weight change,hard of hearing, and vision problems. Eyes: Denies symptoms other than stated above. Ears Nose Mouth Throat: Denies ear symptoms. Denies nasal symptoms. Denies mouth or throat symptoms. Cardiovasular: Denies cardiovascular symptoms. Respiratory: Reports asthma, but denies cough, pneumonia, sleep apnea, shortness of breath, tuberculosis and wheezing. Gastrointestinal: Denies constipation, diarrhea, heartburn, nausea, bloody stools and vomiting, and difficulty swallowing. Genitourinary: Denies female genital problems. Denies incontinence. Musculoskeletal: Reports pain, but denies leg swelling, trouble walking and weakness? Skin: Reports tattoo, but denies Raynaud's and history of shingles. Breast: Denies breast problems. Neurological: Denies neurologic symptoms. Psychiatric: Denies psychiatric symptoms. Endocrine: Denies endocrine symptoms. Hematologic/Lymphatic: Denies hematologic symptoms. Allergy/Immunologic: Denies allergic/immunologic symptoms. Reviewed, no changes. PAST MEDICAL HISTORY: Advance Care Plan: No Advance Directives Effective Date: 02/01/2019 Past Medical History: Medical Problems: Asthma, Thyroid Disease, GERD, High Blood Pressure, Hypercholesterolemia, Depression Accidents: Other - (10/2021) FALL-LT SHOULDER INJURY Other - (05/2000) BRAIN HEMORRHAGE?? Surgical Hx: Cervical Fusion - 2003 Herniated disc L4/L5 Fusion Back Fusion - 6 Hip Replacement LT - (05/30/2019) [facility] @ [facility] Hip Replacement RT - (09/19/2019) [facility] @ [facility] Anesthesia Complications: Slow To Arouse Assistive Devices: Glasses Reviewed and updated. SOCIAL HISTORY: Social History: Marital: Single.Occupation: Unemployed.Work Status: Not Working Currently.Hand Dominance: Right-handed. Personal Habits:? Cigarette Use: Former.Smokeless Tobacco: Never Used Smokeless Tobacco.E-Cigarette Use: Never used.Alcohol: Has consumed alcohol in the past.Drug Use: Denies Use.Enjoy Exercising: Daily. Reviewed, no changes. VITALS: Ht: 62 Wt: 210lb Wt k.256 BMI: 38.4 BP: 122/76 Pulse: 101 Resp: 18 T: 97.8 T: 36.6C Pain Level: 8 O2SatR: 99 ALLERGIES: Lidocaine PCN Latex, Natural Rubber Atorvastatin Codeine Bandaids Plastic Tape? MEDICATIONS: Mupirocin 2 % use qtip and apply inside each nostril twice a day until the day of surgery, Levothyroxine Sodium 75 mcg daily, Bupropion HCL 75 mg 2 tabs by mouth daily, Lisinopril 5 mg daily, Prilosec 20 mg 1 po qdAY, Fluoxetine HCL (PMDD) 20 mg 1 tab by mouth daily, Simvastatin 20 mg 1 by mouth every day, Lamotrigine ER 100 mg 1 tab by mouth daily, Oxybutynin Chloride ER 5 mg take 1 tablet by mouth every day, Aleve 220 mg 2 PO qdaily prn, Oxybutynin Chloride 5 mg one tab PO once daily PRE-OP EXAM:? General appearance:NORMAL? ? ? Other: Eyes: Conjunctivae and lids: NORMAL? Pupils: ERR Ears, Nose, Mouth, and Throat: NORMAL? Other: Inspection of lips, teeth and gums: NORMAL? ?Other: Neck: Examination of neck: no masses noted. Respiratory: Assessment of respiratory effort: NORMAL? ?Other: ?Auscultation of lungs: clear to auscultation no wheezes, rhonchi or rales. Cardiovascular:? Auscultation of heart: regular rate and rhythm, no murmurs, gallops or rubs. PHYSICAL EXAMINATION: On exam this is a pleasant 62-year-old female in no acute distress.? She has some mild tenderness to palpation over the lateral aspect of the left shoulder.? No erythema or signs of infection.? Patient has active forward flexion 90 on the left, passive forward flexion 100 with increased pain.? Internal rotation to beltline and external rotation 15.? She has pain and weakness associated with supraspinatus testing.? Sensation intact to light touch. IMAGING STUDIES: Previous imaging studies involving MRI revealed rotator cuff tendinopathy and full-thickness rotator cuff tendon tear with severe degenerative changes of the glenohumeral joint. IMPRESSION: 1.? Severe left shoulder osteoarthritis with rotator cuff tear 2.? Hypertension 3.? Gastroesophageal reflux disease 4.? Thyroid disease 5.? Asthma 6.? Hypercholesterolemia 7.? Depression PLAN: Dr. Carlyle Broussard did discuss and review with the patient all treatment options including surgical versus nonsurgical options.? Patient does wish to proceed with the above-stated procedure.? Potential risks, benefits, and complications of the procedure were discussed in detail including but not limited to , infection, nerve and blood vessel damage, persistent pain, numbness, tingling, paresthesias, blood clot, pulmonary embolism, and requirement for possible further surgery.? The patient expressed full understanding and has no further questions for the doctor.? Patient does agree to proceed with the above-stated procedure and has signed the surgery consent form. POST-OP MEDICATION PLAN: Pain Medications: Discussed with the patient due to the staph screening we will use doxycycline for 2 weeks postoperatively.? Discussed with the patient hypersensitivity to the sunlight with this medication and to make sure she takes appropriate precautions. We will attempt using Mepilex Dressing post-op, understand she has some adhesive allergies. DVT Prophylaxis:? Aspirin 81 mg twice daily for 2 weeks postoperatively.? Denies past history of DVT or pulmonary embolism This dictation was created using voice recognition software. Phonetic and/or grammatical errors may exist. ___? I have re-examined the patient.? There are no clinical changes since date of exam. ___? See progress notes for changes. ___? Dictated on admission Date: ? ? ?Time: Signature:
[2022-10-20] VITALS (13 sets, daily range): BP systolic 100–138; BP diastolic 52–98; PULSE 90–104; RESP 16–18; TEMP 36.4–36.6; O2SAT 92–100; BMI 38.0
[2022-10-20] MEDS: Magnesium 1 GM over 15 mins IV (10:00)
[2022-10-20] MEDS: Lactated Ringers 1,000 ML 999 ML IV ×2 (10:00→16:00)
[2022-10-20] MEDS: Vancomycin HCl 1,500 MG in 0.9% Normal Saline (500mL Bag) 500 ML 250 MG IV (10:35)
[2022-10-20] MEDS: Celecoxib 200 MG Capsule 400 MG PO (10:36)
[2022-10-20] MEDS: Gabapentin 600 MG Tablet PO (10:36)
[2022-10-20] MEDS: Acetaminophen 500 MG Tablet 1000 MG PO ×2 (10:37→21:46)
--- NOTE | 2022-10-20 10:40 | OP.PCM_ITS ---
Report of Operation Date of Procedure: 10/20/22 Pre-Operative Diagnosis: Left shoulder osteoarthritis with rotator cuff insuffi ciency Post-Operative Diagnosis: Left shoulder osteoarthritis with rotator cuff insufficiency Surgery/Procedure Performed:: Left reverse total shoulder replacement Description of Surgical Findings:: Stable shoulder Surgeon: Carlyle Broussard cinnamon grinder: Natanael Whalen Type of Anesthesia: General Anesthesiologist: Geovani Perea Special Medications: 2 g Ancef, 1 g TXA at incision, 1 g TXA closure, 10 mg Decadron, joint cocktail (5 mg Duramorph, 30 mL of 0.5% Ropivicaine, 1000 units of epinephrine, 30 mg of Toradol), 1 g vancomycin at incision Specimen's removed: Bony cuts Estimated Blood Loss (mL): 150 Fluids Replaced: 1600 ml Description of Procedure: Components used 1. Tornier 25 mm with full augments baseplate with 35 mm central screw and 3 screws. 2. Tornier 39 mm glenosphere 3. Tornier humeral liner 39 mm +0 mm 4. Tornier humeral stem primary press-fit 2+ size Brief history/Operative indications: 62 yo f with history of left shoulder pain and cuff tear arthropathy. Patient failed conservative measures as mentioned in the H&P. After discussion of risk and benefits of reverse total shoulder replacement including but not limited to blood loss, DVTs, PEs, nerve vessel damage, infection, general risk of anesthesia including loss of life, instability and stiffness patient demonstrating understanding wish to proceed was able to sign informed consent. Medical clearance was obtained. Procedure: On the date of the procedure, patient's left upper extremity was marked in the preoperative area. Patient was taken back to the operating room where they were placed on the table in the supine position. Anesthesia assumed control of the C-spine and airway, then administered anesthetic. All bony prominences were identified well-padded, the head was secured and the patient was placed in the beachchair position at about 35? inclination. Anesthesia remained in control of the C-spine airway throughout the remainder of the procedure. Patient was then appropriately fastened to the table and the left upper extremity was prepped in a sterile fashion. The surgeons then scrubbed. Upon reentering the room, the left upper extremity was draped in a sterile fashion and the incision was marked out. Timeout was called, everyone agreed upon the side, the site, the procedure to be performed, patient identity and antibiotics given. Incision was taken down through skin and subcutaneous tissue, fat down to fascia. The stripe of the deltopectoral interval and cephalic vein were identified and blunt dissection was used to retract the deltoid. The cephalic vein was retracted laterally. Clavipectoral fascia was then incised and a cobra retractor was placed in the wound. The proximal one third of the pectoralis major insertion was released. Pectoralis tendon insertion was used to tenodesed the biceps tendon which was identified in the bicipital groove. Tenodesis was done with #1 Vicryl. Proximally we followed the biceps tendon after transecting it into the rotator interval. The rotator interval was split and the arm was externally rotated. The split was 1 cm medial to the bicipital groove. Subscapularis tendon was released. We released down the anterior portion of the humeral head and a guradado elevator was used to release the inferior portion of the humeral head. The arm was externally rotated and the shoulder was dislocated. The humeral head was then cut at its natural retroversion. Once his humeral head cut was made humerus was retracted out of the way and the glenoid was exposed. After exposing the glenoid, the labrum and the remaining proximal biceps were debrided. At this time we are able to view the entire outer edge of the glenoid. A central pin was placed we sequentially reamed over this central pin to 25mm for a full wedge augment. Once this was completed the central screw was measured and found to be. The glenoid baseplate was screwed into place. Wound was closely irrigated out with normal saline we then drilled sequentially for 3 screws. Screws were placed superiorly and inferiorly and tightened down the screws. Once the screws were appropriately tightened into place the glenoid baseplate was compressed against the exposed subchondral bone. A 39mm glenosphere was impacted into place engagi ng the Johnson taper and engaging the central screw. Attention was then turned towards the humerus. The humerus was again externally rotated exposing the proximal portion of the humerus. Central canal finder was then used to open up the canal. We reamed to a 2+ reamer. We then broached to a 2+ stem. We trialed the 0mm liner. We obtained an adequate reduction at this time with a nice stable shoulder. Good internal rotation to the gluteus, forward elevation to 140?, external rotation to 20?. Final components were then assembled on the back table, trials were removed and the wound was copiously irrigated with normal saline after dislocating the shoulder. Once the final components were assembled they were impacted into place. Shoulder was then reduced and found to be stable with good range of motion. Subscapularis tendon not repairable. The wound was with chlorhexidine solution then copiously irrigated out with a 1 L normal saline lavage. The deltopectoral fascia was then closed using #1 Vicryl skin was closed using 2-0 Vicryl interrupted sutures and final skin closure was done with 3-0 Monocryl. Steri-Strips are placed for final skin closure. Sterile dressing was placed patient was then placed in a sling and awakened by anesthesia. Patient was then transferred to the PACU for recovery. Postoperative plan: Patient will be admitted to the hospital overnight. They will get physical therapy starting in 2 weeks with normal postoperative regimen. Patient will be placed on aspirin 81 mg p.o. twice daily for DVT prophylaxis. The first postoperative appointment will be in 2 weeks for wound check and initiation of phase 1 physical therapy. During the course of the procedure the physician construction project assistant played a vital role. His intimate knowledge of my steps in the procedure aided in safe and expedient completion of the procedure. The PA played a vital rolls in positioning particularly in obtaining the appropriate beach chair position and securing the patient's body and head to the table. The PA was also vital in the retraction of soft tissues during the exposure and especially the glenoid work as this is a vital part of the procedure to prevent neurovascular damage. the PA was also vital and protecting soft tissues during times of bony cuts and reaming. He also played a vital role in closure with my direct supervision. The PA was also important during reduction and dislocation of the joint and trials intraoperatively. Admit VTE Documentation VTE Present on Admission: No VTE Mechan Device Prophylaxis: SCD's VTE Pharm Prophylaxis ordered?: Yes
[2022-10-20 11:00] LABS: Bedside Glucose 109 mg/dL (74-106)
[2022-10-20] MEDS: Lactated Ringers 1,000 ML 75 ML IV (11:01)
--- NOTE | 2022-10-20 12:15 | SHO_PTH ---
PATIENT: DOUG WAGNER LOC: MS3 U#:[id number] AGE/SX: 62/F ROOM: [facility] [place] RE10/20/[address]: Dr. Carlyle Broussard MD : 1960 BED: 1 DIS: 10/21/2022 SPEC #: [id number] RECD: 10/21/22 07:55 STATUS: WYATT REDesire #: [id number] SCOTTY: 10/20/22 12:[address]: Carlyle Broussard DEPT: SURGICAL PATHOLOGY RECD BY: Rowan Kam ENTERED: 10/21/22 09:12 SP TYPE: HUMERUS OTHR DR: DO Dr. Mary Kate Bolivar MD Dr. Ama Paintsil, MD Dr. Nicholas F Kotsonis, MD JOY OLDER, WATCH REPAIRER-C Tissues: Humerus, NOS Procedures: Decalcification bone/plaque Surgery Specimen Level IV HEADER OPERATION: ERAS, left reverse total shoulder arthroplasty PRE-OP DIAGNOSIS: Severe left shoulder osteoarthritis with rotator cuff tear TISSUE SUBMITTED: Bone and soft tissue of left shoulder MICROSCOPIC DIAGNOSIS Bone and tissue of left shoulder, total shoulder resection: Severe degenerative joint disease. AM:carole 10/27/2022 MICROSCOPIC DESCRIPTION Slides are reviewed. GROSS DESCRIPTION Received is one container labeled with the patient's name and designated bone and tissue left shoulder. The specimen consists of a humeral head measuring 5.0 x 5.5 x 2.0 cm. The articular surface shows areas of erosion, eburnation and osteophyte formation. Also present in the container are three detached pieces of bone measuring in aggregate 2.0 x 2.5 x 1.0 cm. Also present in the container is a detached piece of fibrocartilaginous tissue measuring 5.5 x 0.6 x 0.3 cm. Pit Shovel Operator sections are submitted in two cassettes as follows: 1 - soft tissue, 2 - humeral head after decalcification. / SJ:carole 10/21/2022 TC:5 CPT: 75559, 59906
[2022-10-20] MEDS: Cefazolin 2 GM in 0.9% Normal Saline (100mL Bag) 100 ML IV (13:05)
[2022-10-20] MEDS: TXA 1000mg in NS100 100ml (IVPB at Incision) 660 MG IV (13:36)
[2022-10-20] MEDS: TXA 1000mg in NS100 100ml (IVPB at Closure) 660 MG IV (14:26)
[2022-10-20] MEDS: Ketorolac 30 MG/ML Syringe (14:45)
[2022-10-20] MEDS: Epinephrine (1 mg/ml) 1 MG/ML VIAL (14:45)
[2022-10-20] MEDS: morphine PF (epidural) 5 MG/10 ML Vial (14:45)
--- NOTE | 2022-10-20 15:52 | RAD_ITS ---
EXAM: XR LEFT SHOULDER COMPLETE, 2 OR MORE VIEWS CLINICAL INDICATION: post op -- AP and Lateral X-Ray of operative shoulder in PACU TECHNIQUE: Two or more views of the left shoulder. COMPARISON: No relevant prior studies available. FINDINGS: BONES/JOINTS: There is a total shoulder prosthesis in anatomic alignment. No acute fracture. Preservation of the joint space. No sclerotic or destructive changes observed. SOFT TISSUES: Unremarkable. No soft tissue swelling or gas. No radiopaque foreign body. RAD/Shoulder min 2 Views IMPRESSION: Left shoulder prosthesis in anatomic alignment. Electronically Signed: Greyson Bartholomew MD at 16:29 EDT ,
[2022-10-20] MEDS: Lactated Ringers 1,000 ML 125 ML IV (17:00)
[2022-10-20] MEDS: Aspirin 81 MG TAB.CHEW PO (18:22)
[2022-10-20] MEDS: Ensure Surgery 237 ML LIQUID PO (18:22)
[2022-10-20] MEDS: oxyCODONE 5 MG Tablet PO (18:22)
[2022-10-20] MEDS: Famotidine 20 MG Tablet PO (18:26)
[2022-10-20] MEDS: Tolterodine Tartrate 2 MG CAP.SA PO (18:26)
[2022-10-20] MEDS: Loratadine 10 MG Tablet PO (18:26)
--- NOTE | 2022-10-20 19:16 | PN.HOSP_ITS ---
Reason for Visit Reason for Visit: Diagnoses Encounter for other preprocedural examination (10/20/22) Subjective Subjective 62-year-old female with left shoulder osteoarthritis presented 10/20/2022 for left reverse total shoulder replacement with Dr. Broussard. Hospitalist consulted for medical management. Evaluated patient at bedside and she reports she is feeling sleepy after receiving pain medication but that it has helped her pain significantly and she has no other acute complaints. Denies shortness of breath or chest pain. Reports she felt a little short of breath earlier but thinks it was due to anxiety Objective Data Objective Data Vital Signs: Vital Signs Temp Pulse Resp BP Pulse Ox O2 Del Method O2 Flow Rate 97.8 F 100 18 130/71 H 100 Nasal Cannula 2 10/20/22 17:58 10/20/22 17:58 10/20/22 17:58 10/20/22 17:58 10/20/22 17:58 10/20/22 18:10 10/20/22 18:10 Oxygen Flow Rate (L/min) 2 Oxygen Delivery Method Nasal Cannula Weight: 91.172 kg Body Mass Index (BMI) 38.0 Intake & Output: Intake and Output for Last 24 Hours 10/18/22 10/19/22 10/20/22 23:59 23:59 23:59 Intake Total 4147.42 / 4147.42 Balance 4147.42 / 4147.42 Lab / Micro Data 09/24/22 12:40 09/24/22 12:40 Labs: Laboratory Results - last 24 hr 10/20/22 10:08: POC Glucose 109 H Micro: Microbiology 09/24/22 12:40 Swab (Method) Nasal Screen MRSA/MSSA - Final Radiography Diagnostic Testing: Radiology Impression Shoulder X-Ray 10/20/22 15:52 IMPRESSION: Left shoulder prosthesis in anatomic alignment. Electronically Signed: Greyson Bartholomew MD at 16:29 EDT , Physical Exam Narrative General: Easily wakes up and answers questions appropriately HEENT: Atraumatic, normocephalic Eyes: Anicteric, normal conjunctiva, extraocular movements grossly intact Neck: Supple Respiratory: Clear to auscultation bilaterally, normal respiratory effort Cardiovascular: Regular rate GI: Soft, nontender, nondistended Extremities: No edema Musculoskeletal: Left upper extremity in sling Neuro: No overt focal neurological deficits Skin: No rashes appreciated Psych: Cooperative Assessment & Plan Assessment/Plan (1) Left shoulder pain: (2) GERD (gastroesophageal reflux disease): (3) Mood disorder: PLAN: Plan #Left shoulder osteoarthritis with rotator cuff insufficiency -Status post left reverse total shoulder replacement 10/20/[address] Broussard -Will be placed on 81 mg aspirin p.o. twice daily per Ortho -PT and follow-up per Ortho -On doxycycline and to receive several doses of cefazolin -Scheduled Tylenol every 8, pain control as needed #Hypothyroidism -Continue Synthroid -Most recent SH 2.92 #GERD -Patient on Pepcid #Mood disturbance -Continue home psychiatric medication #Overactive bladder -Continue tolterodine #DVT ppx: Aspirin 81 mg twice daily Inga Chan MD Time spent in the patient's overall evaluation,decision-making process, review of diagnostic data, adjustment of management, discussion with other providers, n ursing nursing and ancillary staff involved in patient's care documentation, 30 minutes Charges/Coding Visit Charges Office Visits / Consults: [id number] OP Consult L2
[2022-10-20] MEDS: Senna/Docusate Sodium 1 Tablet 2 TABLET PO (21:46)
[2022-10-20] MEDS: Cefazolin 1 GM/50 ML BAG IV (21:46)
[2022-10-20] MEDS: Fluoxetine HCl 40 MG CAPSULE PO (21:46)
[2022-10-21 01:58] VITALS: BP 112/69; PULSE 89; RESP 16; TEMP 36.6; O2SAT 99
[2022-10-21] MEDS: Acetaminophen 500 MG Tablet 1000 MG PO (05:12)
[2022-10-21] MEDS: Levothyroxine 88 MCG Tablet PO (05:12)
[2022-10-21] MEDS: Cefazolin 1 GM/50 ML BAG IV (05:14)
[2022-10-21 05:58] VITALS: BP 119/64; PULSE 94; RESP 16; TEMP 36.6; O2SAT 96
[2022-10-21] MEDS: Doxycycline 100 MG CAPSULE PO (06:12)
[2022-10-21 07:06] LABS: Hematocrit 34.2 % (37-47); Hemoglobin 10.3 g/dL (12.0-15.0); Mean Corp Hgb Conc 30.1 g/dL (32-36); Mean Corpuscular Hgb 26.1 pg (27.0-32.0); Mean Corpuscular Volume 86.6 fL (81-99); Mean Platelet Vol. 8.4 fl (6.2-12.0); Platelet Count 210 K/mm3 (150-450); Red Blood Count 3.95 M/mm3 (4.2-5.4); White Blood Count 5.7 K/mm3 (4.4-11.0)
[2022-10-21 07:34] LABS: Anion Gap 4 (5-15); BUN 16 mg/dL (7-18); BUN/Creat Ratio 14.8 RATIO (10-20); Calcium,Total 8.2 mg/dL (8.5-10.1); Chloride 107 mmol/L (98-107); Creatinine, Serum 1.08 mg/dL (0.55-1.02); EST Glomerular Filtration Rate 55 mL/min (>60); Est Glom Filt Rate - Afr Amer 66 mL/min (>60); Estimated Creatinine Clearance 41.28 ml/min; Glucose 101 mg/dL (74-106); Potassium 4.3 mmol/L (3.5-5.1); Sodium Level 138 mmol/L (136-145)
[2022-10-21 09:40] VITALS: BP 125/86; PULSE 85; RESP 18; TEMP 36.9; O2SAT 99
[2022-10-21] MEDS: oxyCODONE 5 MG Tablet PO (09:43)
[2022-10-21] MEDS: Ensure Surgery 237 ML LIQUID PO (09:44)
[2022-10-21] MEDS: Tolterodine Tartrate 2 MG CAP.SA PO (09:44)
[2022-10-21] MEDS: buPROPion (SR) 150 MG Tablet.SA PO (09:44)
[2022-10-21] MEDS: lamoTRIgine 100 MG Tablet PO (09:44)
[2022-10-21] MEDS: Aspirin 81 MG TAB.CHEW PO (09:44)
[2022-10-21] MEDS: Senna/Docusate Sodium 1 Tablet 2 TABLET PO (09:44)
[2022-10-21] MEDS: Loratadine 10 MG Tablet PO (09:44)
[2022-10-21] MEDS: Famotidine 20 MG Tablet PO (09:44)
[2022-10-21] MEDS: Lisinopril 10 MG Tablet PO (09:44)
[2022-10-21] MEDS: Pantoprazole Sodium 20 MG Tablet PO (09:44)
--- NOTE | 2022-10-21 09:55 | PN.ORTHO_ITS ---
Subjective Subjective The patient was sitting in bedside chair upon examination. Patient denies any chest pain, shortness of breath, dizziness, lightheadedness, nausea or vomiting, or calf pain. Pain is controlled on medications. No adverse overnight events. Patient overall is doing well this morning. She does have pain with the left shoulder but does feel medications are controlling this. She was unable to undergo a nerve block perioperatively. She denies any numbness and tingling. Objective Data Objective Data Vital Signs: Vital Signs Temp Pulse Resp BP Pulse Ox O2 Del Method O2 Flow Rate 97.8 F 94 16 119/64 96 Nasal Cannula 2 10/21/22 05:58 10/21/22 05:58 10/21/22 05:58 10/21/22 05:58 10/21/22 05:58 10/21/22 05:58 10/21/22 05:58 Oxygen Flow Rate (L/min) 2 Oxygen Delivery Method Nasal Cannula Weight: 91.172 kg Body Mass Index (BMI) 38.0 Intake & Output: Intake and Output for Last 24 Hours 10/19/22 10/20/22 10/21/22 23:59 23:59 23:59 Intake Total 4197.42 / 4197.42 50 / 50 Balance 4197.42 / 4197.42 50 / 50 Lab / Micro Data 10/21/22 06:25 10/21/22 06:25 Labs: Laboratory Results - last 24 hr 10/20/22 10:08: POC Glucose 109 H 10/21/22 06:25: WBC 5.7, RBC 3.95 L, Hgb 10.3 L, Hct 34.2 L, MCV 86.6, MCH 26.1 L, MCHC 30.1 L, RDW Std Deviation 48.0 H, RDW Coeff of Jer 15.0 H, Plt Count 210, MPV 8.4, Sodium 138, Potassium 4.3, Chloride 107, Carbon Dioxide 27.0, Anion Gap 4 L, BUN 16, Creatinine 1.08 H, Estim Creat Clear Calc 41.28, Est GFR (MDRD) Af Amer 66, Est GFR (MDRD) Non-Af 55 L, BUN/Creatinine Ratio 14.8, Glucose 101, Calcium 8.2 L Micro: Microbiology 09/24/22 12:40 Swab (Method) Nasal Screen MRSA/MSSA - Final Radiography Diagnostic Testing: Radiology Impression Shoulder X-Ray 10/20/22 15:52 IMPRESSION: Left shoulder prosthesis in anatomic alignment. Electronically Signed: Greyson Bartholomew MD at 16:29 EDT , Physical Exam Narrative Vital signs stable, afebrile Dressing is clean, dry, intact Ultra-sling fitting appropriately Sensation intact to axillary, radial, median, and ulnar distribution Motor intact to AIN, PIN, and ulnar nerve Const alert, oriented x3 and no apparent distress Assessment & Plan Assessment/Plan (1) Status post reverse total arthroplasty of left shoulder: PLAN: 1. S/P left reverse total shoulder arthroplasty POD #1 2. Continue Pain Medications: Tylenol, meloxicam, oxycodone. Do not take any other nonsteroidal anti-inflammatories while using meloxicam/Mobic. 3. DVT Prophylaxis: Aspirin 81 mg twice daily for 2 weeks postoperatively. Patient denies past history of DVT or pulmonary embolism 4. PT/OT: Continue with UltraSling at all times except to come out for range of motion exercises of the elbow and pendulum exercise 3 times daily. No range of motion of the postoperative shoulder until outpatient physical therapy begins. Outpatient physical therapy will begin 2 weeks postoperatively after follow-up with [facility] with x-rays and incision check. 5. Lab work has been reviewed and patient is stable. 6. Encouraged Incentive Spirometry 7. Continue postoperative medical management per medicine 8. Disposition: Plan will be for probable discharge home this today as long as patient's pain is well controlled, tolerates therapy, and medically stable. She has outpatient physical therapy established. She will follow-up per postoperative instructions. Patient would like her medications E scribed to [facility]. Upon discharge she will contact her office with any concerns or questions. I have reviewed the [place] Automated Rx Reporting System (OARRS) report for this patient for refill pattern and other prescriber involvement as part of the appropriate surveillance for the provision of acute and chronic controlled medications. The report was requested and reviewed on the date of this entry and was considered in the prescribing process. This dictation was created using voice recognition software. Phonetic and/or grammatical errors may exist.
--- NOTE | 2022-10-21 09:59 | PCM.DC ---
Discharge Instructions Diet Discharge Diet: No restrictions Activity Discharge Activity: May Not Drive (No driving for 6 weeks postoperatively while wearing the UltraSling. Must also be off all narcotics) May shower in (days): 1 (Dressing must be intact to skin. Turn dressing away from water.) Ice area for (Minutes): 20 (Every 1-2 hours while awake[address] place barrier between skin and ice pack.) Weight Bearing Status: No weight bearing (Postoperative upper extremity) Additional Activity Instructions:: Continue with UltraSling at all times. Please come out of UltraSling 3 times daily working on elbow range of motion and pendulum exercises. No range of motion of postoperative shoulder. Will begin outpatient physical therapy after 2-week scheduled follow-up. Dressing / Incision Call your doctor if your incision/area has: Continuous Slow Oozing, Sudden Increased Bleeding, Increased Pain/ Swelling, Increased Redness and Foul Smelling Discharge Call your doctor if you observe: Fever of 101 or Higher, Shortness of breath, Chest pain and Uncontrolled pain Remove Dressing in: 4 days (Okay to remove dressing on October 25, 2022) Additional Dressing/Incision Instructions:: Follow [facility] Post-op Instructions. Once postoperative dressing has been removed only use gentle soap and water over the incision. Do not use any ointments, Neosporin, salves, alcohol pads over the incision for 6 weeks postoperatively. Do not submerge underwater for 6 weeks postoperatively. Do NOT use alcohol with narcotic pain medication. Do NOT make important decisions while taking narcotic medication. If you have problems with taking your medication (rash, itching, nausea, etc.) call the office at once. Follow Up Care Test Results: Test results from this visit will be discussed in further detail at your follow-up appointment, if applicable. Discharge Plan Admission Admit Date/Time: 10/20/22 16:51 Attending Provider: Carlyle Broussard Primary Care Provider: SHANA FRANCIS Consulting Providers: Shayan Mccauley; Mary Kate Allen; Mary Kate Lima; Campbell Hayden Discharge Orders/Prescriptions Prescriptions: New acetaminophen 500 mg Tablet 1,000 mg PO Q8 Qty: 0 0RF Rx Instructions: Do not take more than 3000 mg Tylenol in a 24-hour period. aspirin 81 mg tablet,delayed release (DR/EC) 81 mg PO BIDCM 14 Days Qty: 28 0RF Rx Instructions: Take 81 mg aspirin twice daily for 2 weeks postoperatively for DVT prophylaxis. doxycycline monohydrate 100 mg Capsule 100 mg PO BIDAC 14 Days Qty: 28 0RF meloxicam 7.5 mg Tablet 7.5 mg PO BID 30 Days Qty: 60 0RF Rx Instructions: Do not take any other nonsteroidal anti-inflammatories while using meloxicam/Mobic. oxycodone 5 mg Tablet 5 - 10 mg PO Q4H PRN PRN (Reason: Pain Score 4-10) 5 Days Qty: 42 0RF sennosides-docusate sodium [Stool Softener-Stimulant Laxat] 8.6-50 mg Tablet 2 tab PO BID 3 Days Qty: 12 0RF Rx Instructions: Take until first bowel movement, then as needed Continued lisinopril 10 MG tablet 10 mg PO DAILY bupropion HCl 75 MG tablet 150 mg PO DAILY albuterol sulfate 1 INHALER inhaler 1 puff inhalation Q6H PRN PRN (Reason: Sob &/Or Wheezing) levothyroxine 75 MCG tablet 88 mcg PO DAILY simvastatin 20 MG tablet 40 mg PO QHS omeprazole 20 MG capsule 20 mg PO DAILY fluoxetine 20 MG capsule 40 mg PO QHS lamotrigine 100 MG tablet extended release 24hr 100 mg PO DAILY ondansetron 4 MG tablet 8 mg PO Q8H PRN PRN (Reason: Nausea) Qty: 14 0RF oxybutynin chloride 5 mg tablet extended release 24hr 5 mg PO DAILY loratadine [Allergy Relief (loratadine)] 10 mg tablet 10 mg PO DAILY Other Ambulatory Orders: 12 Lead EKG (Routine) Timeframe: [id number] Location: None Selected Ordered By: Dr. Carlyle Broussard Referrals / Follow Up: Physical,Therapy [Other] - 11/04/22 4:00 pm Columba Mike MD [Med Staff - Physical Medicine Physician] - Natanael Whalen PA-C [Med Staff - Adv Practice Prof] - 11/04/22 2:15 pm Disposition Disposition (needs filled in before D/C Order can be placed): Home, Self Care
--- NOTE | 2022-10-21 10:46 | CASEMGMT ---
Social Work SW met with pt to discuss advance directives.? Pt confirms she has completed a living will and health care POA naming her aunt Laurie De Souza ([phone]).? Pt notified that documents are not on file at [facility] and SW requested they be brought in for scanning into the EMR.? Pt agreeable. DL Garrison
--- NOTE | 2022-10-21 11:00 | CASEMGMT ---
RN?CM?BALANCE CLERK?CM?to room to meet with patient for initial transition planning/care coordination?assessment.?RN?CM?introduced self and role at [facility].? Pt voices understanding and consents to?assessment?at this time.? Pt sitting up in chair in room in no distress at this time.? Pt is A/O at this time and answers all questions appropriately.?? Care providers, pharmacy, and demographics verified/updated at this time. PCP: Sylvie DE SOUZA Specialists: Dr Rodriguez Preferred Pharmacy: [facility] Retail Insurance: [employer] Prescription Benefit:?Yes LNOK: Aunt/POA, Laurie De Souza. Sig other, Jannet. Mother, Carmen, is living, but pt states she had a stroke and is not able to make any decisions and would like her removed from her contact list. Same removed at this time per her request. Living Arrangements: Lives w/sig other, Jannet, in one-story home w/ramp entrance thru front door. Independent w/ADL's and IADL's prior to surgery. Jannet can assist as needed. Transportation:?Pt and Jannet both drive. DME: States has the following DME: sling, shower chair, cane, water project manager. Pt has lots of other medical equipment available, but does not use. ?Pt states no need for further DME at this time.? HHC/SNF: No hx of either. Pt wishes to return home and states has no concerns with going home at time of discharge.? She is aware therapy is not to begin until after f/u appt w/ortho. Pt voices no further concerns/needs at this time.? Advised pt to ask for?CM?if any further questions/concerns/needs arise.? Voices understanding. PLAN:??Home. Tc ALCARAZN?RN?CM
[2022-10-21 11:33] VITALS: BP 118/73; PULSE 97; RESP 18; TEMP 36; O2SAT 95
== END 2022-10-21 11:36 | disposition home or self-care (01) ==
LOC: SDC 16:51 → MS3 16:51
PROVIDERS: Anesthesiology; Admitting Provider Specialist; PCP Nurse Practitioner; Referring Provider Specialist; Visit Provider Specialist
PROC: (CPT 23472; principal; 2022-10-20 11:45)
DX: M19.012 Primary osteoarthritis, left shoulder (principal); F39 Unspecified mood [affective] disorder; E78.00 Pure hypercholesterolemia, unspecified; E03.9 Hypothyroidism, unspecified; K21.9 Gastro-esophageal reflux disease without esophagitis; Z87.891 Personal history of nicotine dependence; J45.909 Unspecified asthma, uncomplicated; F41.9 Anxiety disorder, unspecified; M75.102 Unspecified rotator cuff tear or rupture of left shoulder, not specified as traumatic; I10 Essential (primary) hypertension; F32.A Depression, unspecified; N32.81 Overactive bladder; Z79.899 Other long term (current) drug therapy; Z79.890 Hormone replacement therapy
CPT/HCPCS: 23472; 01638; 36415; 73030; 80048; 82040; 82962; 83735; 84443; 85025; 85027; 87077; 87081; 88305; 88311; 93005; 94668; 96365; 96366; 97166; 99221; 99252; C1776; J7040; J7120; G0378; G0463; J3475